=== PATIENT | male | born 1965 | race Caucasian/White ===

== ENCOUNTER 2018-07-02 22:01 | Inpatient (IN) ==
[2018-07-02] MEDS ORDERED: methylPREDNISolone 125 MG/2 ML VIAL IVP ONE (22:05)
[2018-07-02] MEDS ORDERED: Ipratropium/Albuterol Neb 3 ML IH ONE (22:05)
--- NOTE | 2018-07-02 22:08 | Emergency Department Note ---
Disposition Clinical Impression: COPD exacerbation Respiratory failure Qualifiers: Chronicity: acute on chronic Respiratory failure complication: unspecified whether with hypoxia or hypercapnia Qualified Code(s): J96.20 - Acute and chronic respiratory failure, unspecified whether with hypoxia or hypercapnia Community acquired pneumonia Qualifiers: Laterality: right Lung location: middle lobe of lung Qualified Code(s): J18.1 - Lobar pneumonia, unspecified organism Disposition: Admitted As Inpatient Condition: Fair Time of Disposition: 23:09 SOB HPI - General Stated Complaint: IRAM Time Seen by Provider: 07/02/18 22:05 Source: patient Mode of arrival: ambulatory Limitations: no limitations Nursing Notes Reviewed: Yes Vital Signs Reviewed: Yes - History of Present Illness Patient presenting to the ED via EMS with the chief complaint of shortness of breath. Patient has a history of oxygen dependent COPD, 2 L at all times. Reports that over the last 2 days he has been progressively more short of breath. Does state that he has had a productive clear to white sputum cough. Unknown fever. EMS reports patient was satting in the low 90s. Upon arrival. Gave him one breathing treatment and he came up into the 90s, but was still having significant respiratory distress. This reports he has been on BiPAP cyn ral times for his COPD. Denies any history of DVT or PE. Denies any chest pain, but does have some chest tightness. No abdominal pain. No pain or swelling in his legs - Related Data Home Medications Medication Instructions Recorded Confirmed Albuterol Sulfate [Albuterol 2 puff IH Q4H PRN #0 10/28/14 09/03/17 Inhaler] Ipratropium/Albuterol Sulfate 4 gm IH QID 05/24/15 09/03/17 [Combivent Respimat Inhal [place]] Previous Rx's Medication Instructions Recorded GuaiFENesin Liq [Robitussin Liq] 200 mg PO Q6HR PRN 30 Days udc 05/30/15 Albuterol Sulfate [Ventolin Hfa] 18 gm IH Q4HR PRN #14 [email or web address] 09/05/17 Azithromycin [Zithromax] 500 mg PO DAILY #2 tablet 09/05/17 predniSONE [PredniSONE] See Taper PO DAILY #30 tablet 09/05/17 Metoprolol [Lopressor] 50 mg PO BID #120 tablet 09/06/17 Mometasone/Formoterol [Dulera 200 13 gm IH BID #14 [email or web address] 09/06/17 Mcg/5 Mcg Inhaler] amLODIPine [Norvasc] 10 mg PO DAILY #60 tablet 09/06/17 Allergies Allergy/AdvReac Type Severity Reaction Status Date / Time No Known Allergies Allergy Verified 07/02/18 22:08 Review of Systems: As reviewed in the HPI. All other systems reviewed are negative or normal. Past Medical History - Past Medical History Attestation: Yes The following information was validated with the patient. Source: patient Medical history: Reports: COPD, hypertension Surgical history: Reports: other Psychiatric history: Reports: no psych history - Social History Smoking Status: Current every day smoker Smokeless Tobacco Status: No Alcohol use: Reports: rarely Drug use: Reports: none Physical Exam CONSTITUTIONAL: [ill appearing, alert and in acute distress] EYES: [EOMI, clear conjunctiva, PERRLA] HENT: [Normocephalic, atraumatic, moist mucus membranes, normal oropharynx] NECK: [normal inspection, full ROM, trachea midline, no obvious swelling] PULMONARY: [Patient is not moving any air, significant respiratory distress, inessa y prolonged expiratory phase, Significant accessory muscle use CARDIOVASCULAR: [regular rate, regular rhythm, normal heart sounds, no murmurs, distal extremities are warm and well perfused] GASTROINSTESTINAL: [soft, non-tender, non-rigid, non-distended, no guarding, no rebound, normal bowel sounds] GENITOURINARY/RECTAL: [deferred] NEUROLOGIC: [Alert, oriented x3, normal speech but limited 2/2 resp distress, moves all extremities] EXTREMITIES: [Normal inspection, full ROM, no tenderness, no pedal edema, normal capillary refill] MUSCULOSKELETAL: [no gross deformities, atraumatic] SKIN: [No cyanosis, no diaphoresis, normal color, warm, no rash] PSYCHIATRIC: [normal mood and affect] Course Course Narrative: Patient work of breathing significantly decreased on BiPAP. Chest x-ray shows a right middle lobe pneumonia, which is consistent with his clinical exam and history. Given a dose of Rocephin and azithromycin. Patient did need a low- dose benzodiazepine to tolerate BiPAP. Patient will also get a liter of fluids which does seem to be bringing his heart rate down. Patient admitted to the hospitalist service. Vital Signs Temperature 100 F H 05/15/19 22:10 Pulse Rate 151 07/02/18 22:10 Respiratory Rate 29 07/02/18 22:10 Blood Pressure 165/138 07/02/18 22:10 O2 Sat by Pulse Oximetry 100 07/02/18 22:10 Temperature 100 F H 07/02/18 22:10 Pulse Rate 141 07/02/18 23:00 Respiratory Rate 22 07/02/18 23:00 Blood Pressure 121/96 07/02/18 23:00 O2 Sat by Pulse Oximetry 97 07/02/18 23:00 Oxygen Delivery Oxygen Delivery Bipap Shortness of Breath/Dyspnea - Lab Data Result diagrams: 07/02/18 22:29 07/02/18 22:29 Lab Results 07/02/18 07/02/18 07/02/18 Range/Units 22:29 22:29 22:29 WBC 14.3 H (4.3-11.1) K/mcL RBC 4.42 (4.19-5.50) M/mcL Hgb 11.9 L (12.9-16.9) g/dL Hct 37.6 (37.5-50.1) % MCV 85.1 (83.0-100.0) fL MCH 26.9 L (28.0-33.3) pg MCHC 31.6 (31.6-35.5) g/dL RDW 13.2 (11.5-14.5) % Plt Count 399 (140-400) K/mcL MPV 9.3 L (9.4-12.4) fL Immature Gran % 0.3 (0-4) % Seg Neutrophils % 80.0 % Lymphocytes % 6.0 % Monocytes % 13.1 % Eosinophils % 0.2 % Basophils % 0.4 % Neutrophils # 11.4 H (1.6-8.9) K/mcL Lymphocytes # 0.9 (0.6-4.6) K/mcL Monocytes # 1.9 H (0.0-1.3) K/mcL Eosinophils # 0.0 (0.0-0.6) K/mcL Basophils # 0.1 (0.0-0.2) K/mcL Immature Plt Fraction 3.2 (1.1-6.1) % Sodium 135 L (136-145) mEq/L Potassium 4.1 (3.5-5.1) mEq/L Chloride 91 L (98-107) mEq/L Carbon Dioxide 33 H (23-29) mEq/L BUN 16 (6-20) mg/dL Creatinine 0.72 (0.70-1.30) mg/dL Est GFR ( Amer) > 60 (> 60) Est GFR (Non-Af Amer) > 60 (> 60) BUN/Creatinine Ratio 22 (6-26) Glucose 158 H (70-105) mg/dL Calculated Osmolality 284 (280-300) Lactic Acid 1.7 (0.5-2.2) mmol/L Calcium 9.5 (8.6-10.3) mg/dL Troponin I 0.03 (< 0.04) ng/mL
--- NOTE | 2018-07-02 22:10 | Emergency Department Note ---
Disposition Clinical Impression: COPD exacerbation, Respiratory failure Disposition: Admitted As Inpatient General Adult HPI - General Stated complaint: IRAM Time Seen by Provider: 07/02/18 22:05 Source: patient, EMS Mode of arrival: EMS Limitations: physical limitation Nursing Notes Reviewed: Yes Vital Signs Reviewed: Yes - History of Present Illness HPI Narrative: ED attending attestation note: I examined this patient and my medical decision-making was reviewed with the emergency medicine resident Sal Roe. I agree with the documented findings, disposition and treatment plan as described except to the extent set forth below. Briefly: This 2-year-old male history of advanced COPD on home O2 by EMS for shortness breath cough and white sputum. Patient's sats were in the high 80s low 90s. Improved with oxygen administration. Scattered bilateral wheezes with intercostal retractions he is in moderate respiratory distress. Patient getting triple DuoNeb's IV steroids front desk monitor BiPAP chest x-ray EKG and screening labs with admission anticipated. Providing 45 minutes critical care service for this patient. Disposition pending - Related Data Home Medications Medication Instructions Recorded Confirmed Albuterol Sulfate [Albuterol 2 puff IH Q4H PRN #0 10/28/14 09/03/17 Inhaler] Ipratropium/Albuterol Sulfate 4 gm IH QID 05/24/15 09/03/17 [Combivent Respimat Inhal [place]] Previous Rx's Medication Instructions Recorded GuaiFENesin Liq [Robitussin Liq] 200 mg PO Q6HR PRN 30 Days udc 05/30/15 Albuterol Sulfate [Ventolin Hfa] 18 gm IH Q4HR PRN #14 [email or web address] 09/05/17 Azithromycin [Zithromax] 500 mg PO DAILY #2 tablet 09/05/17 predniSONE [PredniSONE] See Taper PO DAILY #30 tablet 09/05/17 Metoprolol [Lopressor] 50 mg PO BID #120 tablet 09/06/17 Mometasone/Formoterol [Dulera 200 13 gm IH BID #14 [email or web address] 09/06/17 Mcg/5 Mcg Inhaler] amLODIPine [Norvasc] 10 mg PO DAILY #60 tablet 09/06/17 Allergies Allergy/AdvReac Type Severity Reaction Status Date / Time No Known Allergies Allergy Verified 09/03/17 13:07 Past Medical History - Past Medical History Medical history: Reports: COPD, hypertension Surgical history: Reports: other Psychiatric history: Reports: no psych history - Social History Smoking Status: Current every day smoker Smokeless Tobacco Status: No Alcohol use: Reports: rarely Drug use: Reports: none
[2018-07-02] MEDS ORDERED: *HR* Midazolam HCl 2 MG/2 ML VIAL IVP ONE (22:21)
[2018-07-02] MEDS ORDERED: Acetaminophen IV 1,000 MG/100 ML INFUS..BTL IVPB ONE (22:33)
[2018-07-02] MEDS ORDERED: *HR* FentaNYL (PF) 100 MCG/2 ML VIAL IVP ONE (22:47)
[2018-07-02 22:48] LABS: Basophils # 0.1 K/mcL (0.0-0.2); Basophils % 0.4 %; Eosinophils % 0.2 %; Hematocrit 37.6 % (37.5-50.1); Hemoglobin 11.9 g/dL (12.9-16.9); Immature Granulocytes % 0.3 % (0-4); Immature Platelets 3.2 % (1.1-6.1); Lymphocytes # 0.9 K/mcL (0.6-4.6); Mean Corpuscular HGB Conc 31.6 g/dL (31.6-35.5); Mean Corpuscular Hemoglobin 26.9 pg (28.0-33.3); Mean Corpuscular Volume 85.1 fL (83.0-100.0); Mean Platelet Volume 9.3 fL (9.4-12.4); Monocytes # 1.9 K/mcL (0.0-1.3); Monocytes % 13.1 %; Neutrophils # 11.4 K/mcL (1.6-8.9); Platelet Count 399 K/mcL (140-400); Red Blood Count 4.42 M/mcL (4.19-5.50); Red Cell Distribution Width 13.2 % (11.5-14.5)
[2018-07-02] MEDS ORDERED: Azithromycin 500 MG in D5% in Water 250 ML IVPB ONE (23:01)
[2018-07-02] MEDS ORDERED: cefTRIAXone 1,000 MG in Water for inj. (sterile) 20 ML 10 ML IVPB ONE (23:01)
[2018-07-02 23:06] LABS: BUN/Creatinine Ratio 22 (6-26); Blood Urea Nitrogen 16 mg/dL (6-20); Calcium 9.5 mg/dL (8.6-10.3); Carbon Dioxide 33 mEq/L (23-29); Chloride 91 mEq/L (98-107); Glucose 158 mg/dL (70-105); Osmolality,Calculated 284 (280-300); Potassium 4.1 mEq/L (3.5-5.1); Sodium 135 mEq/L (136-145); Troponin I 0.03 ng/mL (< 0.04); eGFR For Non-African Americans > 60 (> 60)
[2018-07-02] MEDS ORDERED: 0.9 % Sodium Chloride 1,000 ML IVC ONE (23:06)
[2018-07-02] MEDS ORDERED: 0.9 % Sodium Chloride 1,000 ML IVC SCH (23:15)
[2018-07-03] MEDS ORDERED: Naloxone 0.4 MG/ML INJ IVP PRN (03:24)
[2018-07-03] MEDS ORDERED: Ondansetron ODT 4 MG TAB.RAPDIS SL PRN (03:24)
--- NOTE | 2018-07-03 03:45 | Internal Med History&Physical ---
<Ya Flores - Last Filed: 07/03/18 05:39> Date of Encounter: 07/03/18 Time of Encounter: 03:00 Internal Medicine - H&P: HPI Chief complaint: shortness of breath Admitted From: Home History of present illness: Mr. Perrin is a 52 year old male with past medical history of COPD and hypertension who presented to the ED complaining of worsening shortness of breath. He reports the shortness of breath onset 3 days ago and progressively has worsened. Shortness of breath is present at rest and worsens with exertion. Is associated with productive cough. He is usually on 2 L of nasal cannula at all times at home and reports even with that his oxygen saturation was 90%. He denies any recent sick exposures. He is also complaining of diffuse tightness around his bilateral chest which worsens with cough and is reproducible upon palpation. He denies any abdominal pain, lower extremity edema, orthopnea, PND, nausea or emesis. In the ED he was noted to have oxygen saturation in the high 80s to low 90s with diffuse wheezing. Chest x-ray was ordered which showed focal opacity in the right midlung and advanced emphysematous changes. Past Med Surg Social Fam HX - Past Medical History Medical history: COPD, hypertension Psychiatric history: no psych history - Past Surgical History Surgical History: other Additional surgical history: Left knee replacement, Posterior trunk lipoma and right anterior thigh mass removal and biopsy (Per Dr Keene October 2014) - Social History Smoking Status: Former smoker Smokeless Tobacco Status: No Alcohol use: none Drug use: none - Family History Mother Living Status: Hx Family Cancer: Yes (Breast cancer.) Internal Medicine - H&P: Meds Albuterol Sulfate [Albuterol Inhaler] 2 puff IH Q4H PRN #0 10/28/14 [History] Ipratropium/Albuterol Sulfate [Combivent Respimat Inhal [place]] 4 gm IH QID 05/24/15 [History] Albuterol Sulfate [Ventolin Hfa] 18 gm IH Q4HR PRN #14 [email or web address] 09/05/17 [Rx] Metoprolol [Lopressor] 50 mg PO BID #120 tablet 09/06/17 [Rx] Mometasone/Formoterol [Dulera 200 Mcg/5 Mcg Inhaler] 13 gm IH BID #14 [email or web address] 09/06/17 [Rx] amLODIPine [Norvasc] 10 mg PO DAILY #60 tablet 09/06/17 [Rx] Allergy/AdvReac Type Severity Reaction Status Date / Time No Known Allergies Allergy Verified 07/02/18 22:08 All Systems PM: A 10-system review of systems was performed and is negative for pertinent findings except as documented above in the HPI. - Constitutional Constitutional: no chills, no fever(s), no weakness - EENT Eyes: no blurry vision, no change in vision, no loss of peripheral vision, no loss of vision Nose, mouth and throat: no dysphagia, no nasal congestion, no odynophagia - Cardiovascular Cardiovascular ROS IM: dyspnea, dyspnea on exertion, no chest pain, no diaphoresis, no orthopnea, no palpitations, no paroxysmal nocturnal dyspnea - Respiratory Respiratory: cough, dyspnea, dyspnea on exertion, wheezing, pain with cough - Gastrointestinal Gastrointestinal: no abdominal pain, no constipation, no diarrhea, no nausea, no vomiting - Genitourinary Genitourinary ROS male: no dysuria, no flank pain, no urinary frequency, no urinary incontinence - Integumentary Integumentary IM: no erythema, no pruritus, no rash - Neurological Neurological ROS: no focal weakness, no tremor(s), no vertigo, no weakness - Psychiatric Psychiatric: anxiety, no change in appetite, no depression - Constitutional Vitals: Temp Pulse Resp BP Pulse Ox 98.1 F 110 16 120/93 94 07/03/18 01:40 07/03/18 01:40 07/03/18 01:40 07/03/18 01:40 07/03/18 01:40 Exam: Gen: Vitals noted. No acute distress. Appears mildly uncomfortable. Eyes: anicteric sclerae, moist conjunctivae; no lid-lag; Pupils equal and reactive to light HENT: Atraumatic; oropharynx clear with moist mucous membranes and no mucosal ulcerations; normal hard and soft palate Neck: Trachea midline; supple, no thyromegaly or lymphadenopathy Cardiac: regular rhythm with tachycardia, no murmur, +S1/S2. No JVD noted. Pulmonary: Diffuse wheezing at all lung lobes, no rales or rhonchi, equal chest expansion Abdomen: soft, nontender, no guarding. No masses or hepatosplenomegaly MSK: ROM intact, no joint swelling noted, tenderness around anterior costophrenic angles Extremities: no edema, nontender calf Skin: Normal temperature, turgor; no rash, ulcers or subcutaneous nodules Neuro: moves all extremities, no focal deficits. Psych: Appropriate mood and behavior. A&Ox3 Internal Med - H&P Results - Labs CBC & Chem 7: 07/02/18 22:29 07/02/18 22:29 Labs: Short CBC 07/02/18 Range/Units 22:29 WBC 14.3 H (4.3-11.1) K/mcL Hgb 11.9 L (12.9-16.9) g/dL Hct 37.6 (37.5-50.1) % Plt Count 399 (140-400) K/mcL Neutrophils # 11.4 H (1.6-8.9) K/mcL BMP 07/02/18 22:29 Sodium 135 L Potassium 4.1 Chloride 91 L Carbon Dioxide 33 H BUN 16 Creatinine 0.72 Glucose 158 H Calcium 9.5 Cardiac Enzymes 07/02/18 Range/Units 22:29 Troponin I 0.03 (< 0.04) ng/mL - Impressions ITS Impressions Chest X-Ray 07/02/18 22:05 IMPRESSION: Possible focal opacity in the right mid lung, which may be infectious in etiology. However, close radiographic follow-up is recommended until resolution, versus further evaluation with chest CT. Advanced emphysematous changes. D/ / Boby Roach MD / Boby Roach MD Interpreting Provider: Boby Roach MD - Assessment and Plan (1) Pneumonia Current Visit: No Status: Acute Assessment and plan: Presented to the ED complaining of worsening shortness of breath with productive cough. Chest x-ray shows focal opacification in the right middle lung Wbc on presentation was 14.3 No recent healthcare exposure -Continue treating for community-acquired pneumonia with IV Rocephin and ceftriaxone -Continue scheduled DuoNeb -Cultures and sputum cultures pending -Repeat CBC and BMP pending Qualifiers: Pneumonia type: due to unspecified organism Laterality: right Lung location: upper lobe of lung Qualified Code(s): J18.1 - Lobar pneumonia, unspecified organism (2) Acute respiratory failure with hypoxia Current Visit: Yes Status: Acute Assessment and plan: Presented to the ED with worsening shortness of breath even on 2 L nasal cannula at home Likely secondary to underlying pneumonia and COPD exacerbation Oxygen saturation in the ED was noted to be in the high 80s -ABG pending -Continue supplemental oxygen -Continue BiPAP as needed -Continue to treat pneumonia (3) Acute exacerbation of chronic obstructive airways disease Current Visit: No Status: Acute Assessment and plan: History of COPD presented to the ED complaining of worsening shortness of breath occurring more than daily 2 L of supplemental oxygen. Also complaining of productive cough. At presentation to the ED oxygen saturation was in the high 80s, does have diffuse wheezing in all lung lobes. -Received 125 mg of Solu-Medrol in the ED -Continue 60 mg IV Solu-Medrol every 8 hour -Continue scheduled DuoNeb -Continue Mucinex -Continue BiPAP -Sputum cultures pending (4) Chest pain Current Visit: Yes Status: Acute Assessment and plan: Complained of chest pain that worsens with inspiration and cough Could be secondary to pneumonia versus costochondritis versus cardiac cause Troponin at admission was noted to be 0.03 BNP was normal at 42 Continue cardiac monitoring Continue acetaminophen Qualifiers: Chest pain type: chest pain on breathing Qualified Code(s): R07.1 - Chest p ain on breathing; R07.81 - Pleurodynia (5) Hyperglycemia Current Visit: Yes Status: Acute Assessment and plan: Glucose noted to be 158 Upon comparison of previous admissions glucose has been high in the past No A1c found on file A1c pending May need sliding scale insulin depending on A1c as he is currently on Solu- Medrol (6) HTN (hypertension) Current Visit: No Status: Chronic Assessment and plan: History of hypertension since presentation blood pressure has been stable. Blood pressure increases restart home amlodipine Due to tachycardia did restart home metoprolol Qualifiers: Hypertension type: essential hypertension Qualified Code(s): I10 - Essential (primary) hypertension (7) DVT prophylaxis Current Visit: No Status: Acute Assessment and plan: Subcutaneous heparin - Time Spent With Patient Total time spent is greater than 50% in coordination of care (as documented) at patient's floor/unit and/or counseling patient: <Hilborn,Chace D - Last Filed: 07/03/18 06:30> Date of Encounter: 07/03/18 Internal Medicine - H&P: HPI History of present illness: Mr. Perrin is a 52 year old male All Systems PM: A 10-system review of systems was performed and is negative for pertinent findings except as documented above in the HPI. - Constitutional Vitals: Temp Pulse Resp BP Pulse Ox 98.1 F 110 20 120/93 94 07/03/18 01:40 07/03/18 01:40 07/03/18 03:55 07/03/18 03:55 07/03/18 03:55 Internal Med - H&P Results - Labs CBC & Chem 7: 07/02/18 22:29 07/02/18 22:29 Labs: Short CBC 07/02/18 Range/Units 22:29 WBC 14.3 H (4.3-11.1) K/mcL Hgb 11.9 L (12.9-16.9) g/dL Hct 37.6 (37.5-50.1) % Plt Count 399 (140-400) K/mcL Neutrophils # 11.4 H (1.6-8.9) K/mcL BMP 07/02/18 22:29 Sodium 135 L Potassium 4.1 Chloride 91 L Carbon Dioxide 33 H BUN 16 Creatinine 0.72 Glucose 158 H Calcium 9.5 Cardiac Enzymes 07/02/18 Range/Units 22:29 Troponin I 0.03 (< 0.04) ng/mL - ABG Interpretation ABG results: 07/03/18 06:08 ABG pH 7.35 ABG pCO2 59 H ABG pO2 70 L ABG HCO3 33 H ABG Total CO2 34 H ABG O2 Saturation 92 L ABG Base Excess 5 H - Impressions ITS Impressions Chest X-Ray 07/02/18 22:05 IMPRESSION: Possible focal opacity in the right mid lung, which may be infectious in etiology. However, close radiographic follow-up is recommended until resolution, versus further evaluation with chest CT. Advanced emphysematous changes. D/ / Boby Roach MD / Boby Roach MD Interpreting Provider: Boby Roach MD - Time Spent With Patient Total time spent is greater than 50% in coordination of care (as documented) at patient's floor/unit and/or counseling patient: - Attending Attestation I saw and evaluated the patient. I reviewed the residents note, performed my own physical examination and agree with findings and plan as documented in the residents note. Patient seen and examined on 07/03/18. Patient presented with COPD exacerbation. Also found to have possible pneumonia in right mid lung. Started antibiotics, ceftriaxone and azithromycin, ordered ABG and blood cultures. will continue breathing treatments and IV steroids as well. A1c ordered because of history of hyperglycemia in setting of steroids. Ruling out possible underlying diabetes. Continue to monitor oxygen saturation, continue BiPAP.
[2018-07-03] MEDS: Ipratropium/Albuterol Neb 3 ML IH SCH ×4 (03:52→22:11)
[2018-07-03] MEDS: *HR* LORazepam 2 MG/ML VIAL IVP PRN ×2 (03:59→20:36)
[2018-07-03 06:11] LABS: ABG Base Excess 5 mEq/L (-2 to 3); ABG HCO3 33 mEq/L (21-27); ABG Oxygen Saturation 92 % (95-98); ABG PCO2 59 mmHg (35-45); ABG PH 7.35 pH Units (7.32-7.45); ABG PO2 70 mmHg (85-104); ABG TCO2 34 mEq/L (20-26)
[2018-07-03] MEDS: methylPREDNISolone 125 MG/2 ML VIAL IVP SCH ×3 (06:13→20:35)
[2018-07-03] MEDS: *HR* Heparin 5,000 UNIT/ML VIAL SQ SCH ×2 (06:14→17:20)
[2018-07-03 08:01] LABS: Basophils % 0.1 %; Hematocrit 33.9 % (37.5-50.1); Hemoglobin 10.4 g/dL (12.9-16.9); Immature Granulocytes % 0.3 % (0-4); Lymphocytes # 0.3 K/mcL (0.6-4.6); Lymphocytes % 2.8 %; Mean Corpuscular HGB Conc 30.7 g/dL (31.6-35.5); Mean Corpuscular Hemoglobin 26.3 pg (28.0-33.3); Mean Corpuscular Volume 85.6 fL (83.0-100.0); Mean Platelet Volume 9.6 fL (9.4-12.4); Monocytes # 0.5 K/mcL (0.0-1.3); Monocytes % 4.5 %; Neutrophils # 10.2 K/mcL (1.6-8.9); Platelet Count 335 K/mcL (140-400); Red Blood Count 3.96 M/mcL (4.19-5.50); Red Cell Distribution Width 13.2 % (11.5-14.5); Segmented Neutrophils % 92.3 %
[2018-07-03 08:40] LABS: BUN/Creatinine Ratio 26 (6-26); Blood Urea Nitrogen 16 mg/dL (6-20); Calcium 9.1 mg/dL (8.6-10.3); Glucose 158 mg/dL (70-105); eGFR For Non-African Americans > 60 (> 60)
[2018-07-03 08:49] LABS: Carbon Dioxide 32 mEq/L (23-29); Chloride 94 mEq/L (98-107); Osmolality,Calculated 286 (280-300); Potassium 4.5 mEq/L (3.5-5.1); Sodium 136 mEq/L (136-145)
[2018-07-03 09:13] LABS: Estimated Average Glucose 117 mg/dl; Hemoglobin A1C 5.7 %
[2018-07-03] MEDS: *HR* OxyCODONE Immed Rel 5 MG TABLET PO PRN ×3 (09:21→23:35)
[2018-07-03] MEDS: GuaiFENesin/Dextromethorphan TABLET PO SCH ×2 (09:21→20:35)
--- NOTE | 2018-07-03 11:12 | Event Note ---
Date of Encounter: 07/03/18 Time of Encounter: 11:11 Patient seen and examined at bedside. Patient states that he feels terrible swelling. Reports continued shortness of breath and productive cough with thick greenish sputum. He reports pain all over. Denies any fevers or chills On exam his lungs have diffuse rhonchi with bilateral wheezes Pneumonia: Continue treatment for community acquired pneumonia with Rocephin and Zithromax, will check strep and legionella urinary antigen respiratory infection panel COPD exacerbation: Continue scheduled bronchodilators, IV steroids, antibiotics as above.
[2018-07-03 12:19] LABS: Adenovirus Not Detected (Not Detect); Bordetella Pertussis Not Detected (Not Detect); Chlamydophila pneumoniae Not Detected (Not Detect); Coronavirus 229E Not Detected (Not Detect); Coronavirus HKU1 Not Detected (Not Detect); Coronavirus NL63 Not Detected (Not Detect); Coronavirus OC43 Not Detected (Not Detect); Human Metapneumovirus Not Detected (Not Detect); Human Rhinovirus/Enterovirus Not Detected (Not Detect); Influenza A Subtype 2009 H1 Not Detected (Not Detect); Influenza A Untypeable Not Detected (Not Detect); Influenza B Not Detected (Not Detect); Mycoplasma pneumoniae Not Detected (Not Detect); Parainfluenza Virus 1 Not Detected (Not Detect); Parainfluenza Virus 2 Not Detected (Not Detect); Parainfluenza Virus 3 Not Detected (Not Detect); Parainfluenza Virus 4 Not Detected (Not Detect); Respiratory Syncytial Virus Not Detected (Not Detect)
--- NOTE | 2018-07-03 18:31 | Electrocardiograph Report ---
[address] [place], [place] [address] Test Date: 2018-07-02 Pat Name: Prashanth Perrin Department: EXAM20 Room: 2N10 Gender: M Vp Research: : 1965 Requested By: Dimitris Jimenez Order Number: [id number] Reading MD: Esperanza Terrazas Measurements Intervals [place] Rate: 148 P: 71 [place]: 125 QRS: 81 QRSD: 79 T: 87 QT: 260 QTc: 408 Interpretive Statements Sinus tachycardia Probable left ventricular hypertrophy Electronically Signed On 07-03-2018 18:29:25 EDT by Esperanza Terrazas
[2018-07-03] MEDS: cefTRIAXone 1,000 MG in Water for inj. (sterile) 20 ML 10 ML IVP SCH (23:35)
[2018-07-03] MEDS: Azithromycin 500 MG in D5% in Water 250 ML IVPB SCH (23:36)
[2018-07-04] MEDS: Ipratropium/Albuterol Neb 3 ML IH SCH ×4 (03:52→22:31)
[2018-07-04] MEDS: methylPREDNISolone 125 MG/2 ML VIAL IVP SCH (04:57)
[2018-07-04] MEDS: *HR* Heparin 5,000 UNIT/ML VIAL SQ SCH ×2 (04:57→17:14)
[2018-07-04] MEDS: *HR* OxyCODONE Immed Rel 5 MG TABLET PO PRN ×4 (05:32→23:11)
[2018-07-04] MEDS: GuaiFENesin/Dextromethorphan TABLET PO SCH ×2 (08:00→20:20)
[2018-07-04 11:05] LABS: Basophils % 0.2 %; Hematocrit 33.5 % (37.5-50.1); Hemoglobin 10.4 g/dL (12.9-16.9); Immature Granulocytes % 0.6 % (0-4); Lymphocytes # 0.8 K/mcL (0.6-4.6); Lymphocytes % 4.5 %; Mean Corpuscular Hemoglobin 26.8 pg (28.0-33.3); Mean Corpuscular Volume 86.3 fL (83.0-100.0); Mean Platelet Volume 9.7 fL (9.4-12.4); Monocytes # 0.6 K/mcL (0.0-1.3); Monocytes % 3.7 %; Neutrophils # 15.2 K/mcL (1.6-8.9); Platelet Count 419 K/mcL (140-400); Red Blood Count 3.88 M/mcL (4.19-5.50); Red Cell Distribution Width 13.2 % (11.5-14.5)
[2018-07-04 11:11] LABS: BUN/Creatinine Ratio 32 (6-26); Blood Urea Nitrogen 20 mg/dL (6-20); Calcium 9.1 mg/dL (8.6-10.3); Carbon Dioxide 35 mEq/L (23-29); Chloride 91 mEq/L (98-107); Glucose 190 mg/dL (70-105); Osmolality,Calculated 286 (280-300); Potassium 4.5 mEq/L (3.5-5.1); Sodium 134 mEq/L (136-145); eGFR For Non-African Americans > 60 (> 60)
--- NOTE | 2018-07-04 12:26 | Internal Med Progress Note ---
Hospitalist Progress Note - Encounter Date of Encounter: 07/04/18 Time of Encounter: 12:23 - Subjective Interval History: Patient seen and examined at bedside. Patient states he feels better today. He feels like his breathing is improved. He states he still has an occasional productive cough with leukocytosis is improving. Denies chest pain, fever, chills. - Exam Vitals: Temp Pulse Resp BP Pulse Ox 97.9 F 79 23 137/97 99 07/04/18 12:07 07/04/18 12:07 07/04/18 12:07 07/04/18 12:07 07/04/18 12:07 Exam: Gen.: Oriented 3, no acute distress Lungs: Rare scattered wheezes, no rales or rhonchi appreciated, no tachypnea or respiratory distress Heart: Regular rate and rhythm, no murmurs, rubs or gallops Abdomen: Soft, nontender, nondistended. Normoactive bowel sounds. - Assessment and Plan (1) Acute and chronic respiratory failure Current Visit: Yes Status: Acute Assessment and Plan: Secondary to COPD exacerbation in the setting of pneumonia. Oxygen status appears to be improved. Patient is satting high 90s on 3.5 L, we will attempt to continue to wean down to home O2 dose of 2 L. Continue oxygen supplementation to maintain oxygen saturation greater than 88%. (2) Acute exacerbation of chronic obstructive airways disease Current Visit: No Status: Acute Assessment and Plan: Secondary to community-acquired pneumonia. Patient seems to be improving. We will cut back IV Solu-Medrol to 40 mg every 8, likely transition to by mouth tomorrow. Continue scheduled bronchodilators, antibiotics. (3) Pneumonia Current Visit: No Status: Acute Assessment and Plan: Patient has evidence of community acquired pneumonia on chest x-ray in symptomatically with shortness of breath and increased cough and sputum production. Continue azithromycin and ceftriaxone. (4) HTN (hypertension) Current Visit: No Status: Chronic Assessment and Plan: Blood pressure under adequate control. Continue home medications. (5) Protein calorie malnutrition Current Visit: Yes Status: Acute (6) DVT prophylaxis Current Visit: No Status: Acute Assessment and Plan: Heparin 5000 units subcutaneous twice a day - Time Spent with Patient Total time spent is greater than 50% in coordination of care (as documented) at patient's floor/unit and/or counseling patient: Internal Medicine: Result - Labs CBC & Chem 7: 07/04/18 09:59 07/04/18 09:59 Labs: Short CBC 07/04/18 Range/Units 09:59 WBC 16.7 H D (4.3-11.1) K/mcL Hgb 10.4 L (12.9-16.9) g/dL Hct 33.5 L (37.5-50.1) % Plt Count 419 H (140-400) K/mcL Neutrophils # 15.2 H (1.6-8.9) K/mcL BMP 07/04/18 09:59 Sodium 134 L Potassium 4.5 Chloride 91 L Carbon Dioxide 35 H BUN 20 Creatinine 0.62 L Glucose 190 H Calcium 9.1 - ABG Interpretation ABG results: ABG ABG pH 7.35 pH Units (7.32-7.45) 07/03/18 06:08 ABG pCO2 59 mmHg (35-45) H 07/03/18 06:08 ABG pO2 70 mmHg (85-104) L 07/03/18 06:08 ABG O2 Saturation 92 % (95-98) L 07/03/18 06:08 Consult Discharge Plan - Plan Referrals: Tracie Humphrey, APICULTURIST [Advanced Practice Nurse] - 07/11/18 9:15 am __ (1) Acute and chronic respiratory failure Qualifiers: Respiratory failure complication: hypoxia Qualified Code(s): J96.21 - Acute and chronic respiratory failure with hypoxia (3) Pneumonia Qualifiers: Pneumonia type: due to unspecified organism Laterality: right Lung location: upper lobe of lung Qualified Code(s): J18.1 - Lobar pneumonia, unspecified o rganism (4) HTN (hypertension) Qualifiers: Hypertension type: essential hypertension Qualified Code(s): I10 - Essential (primary) hypertension (5) Protein calorie malnutrition Qualifiers: Protein-calorie malnutrition severity: severe Qualified Code(s): E43 - Unspecified severe protein-calorie malnutrition
[2018-07-04] MEDS: *HR* LORazepam 2 MG/ML VIAL IVP PRN (15:34)
[2018-07-04] MEDS: MethylPREDNISolone 40 MG/ML VIAL IVP SCH (17:13)
[2018-07-04] MEDS: Acetaminophen 325 MG TABLET PO PRN (20:21)
[2018-07-04] MEDS: cefTRIAXone 1,000 MG in Water for inj. (sterile) 20 ML 10 ML IVP SCH (23:06)
[2018-07-04] MEDS: Azithromycin 500 MG in D5% in Water 250 ML IVPB SCH (23:10)
[2018-07-05] MEDS: Ipratropium/Albuterol Neb 3 ML IH SCH ×4 (03:39→22:11)
[2018-07-05] MEDS: Acetaminophen 325 MG TABLET PO PRN ×2 (05:24→20:04)
[2018-07-05] MEDS: MethylPREDNISolone 40 MG/ML VIAL IVP SCH ×2 (05:26→17:01)
[2018-07-05] MEDS: *HR* Heparin 5,000 UNIT/ML VIAL SQ SCH ×2 (05:30→17:01)
--- NOTE | 2018-07-05 07:44 | Internal Med Progress Note ---
Hospitalist Progress Note - Encounter Date of Encounter: 07/05/18 Time of Encounter: 10:38 - Subjective Interval History: feeling more dyspnea yellow phlegm bilateral lower chest pleuritic chest pain - Exam Vitals: Temp Pulse Resp BP Pulse Ox 97.5 F L 72 22 139/97 98 07/05/18 07:04 07/05/18 07:04 07/05/18 07:04 07/05/18 07:04 07/05/18 07:04 Exam: Gen.: Oriented 3, tachypnea, sitting up to breathe Lungs: Prolonged expiration > 3 x inspiration, expiratory wheezes, no rales Heart: Regular rate and rhythm, no murmurs, rubs or gallops Abdomen: Soft, nontender, nondistended. no guaring or rebound awake, alert, no dysarthria or gross motor deficits no ankle edema - Assessment and Plan (1) COPD exacerbation Current Visit: Yes Status: Acute (2) Respiratory failure Current Visit: Yes Status: Acute (3) Pneumonia Current Visit: No Status: Acute (4) Leukocytosis Current Visit: No Status: Acute (5) HTN (hypertension) Current Visit: No Status: Chronic (6) DVT prophylaxis Current Visit: No Status: Acute - Summary of Assessment and Plan Summary of Assessment and Plan: Per H&P: """Mr. Perrin is a 52 year old male with past medical history of COPD and hypertension who presented to the ED complaining of worsening shortness of breath. He reports the shortness of breath onset 3 days ago and progressively has worsened. Shortness of breath is present at rest and worsens with exertion. Is associated with productive cough. He is usually on 2 L of nasal cannula at all times at home and reports even with that his oxygen saturation was 90%. He denies any recent sick exposures. He is also complaining of diffuse tightness around his bilateral chest which worsens with cough and is reproducible upon palpation. He denies any abdominal pain, lower extremity edema, orthopnea, PND, nausea or emesis. In the ED he was noted to have oxygen saturation in the high 80s to low 90s with diffuse wheezing. Chest x-ray was ordered which showed focal opacity in the right midlung and advanced emphysematous changes. """ (1) Acute and chronic respiratory failure (2) Acute exacerbation of chronic obstructive airways disease (3) Pneumonia - wheezing this morning, --> continuous nebs - cont supplemental O2 by NC, will attempt to continue to wean down to home O2 dose of 2 L prior to discharge - cont BiPAP hs (home BiPAP) - Cont IV Solu-Medrol, transition when improved further - Continue scheduled bronchodilators, azithromycin, ceftriaxone - WBC 11k --> 16k likely due to steroids, if clinically worsens, will broaden antibiotics (4) HTN (hypertension) Blood pressure under adequate control - resume amlodipine if BP high - Resume metoprolol when further improved (5) DVT prophylaxis Heparin 5000 units subcutaneous twice a day - Time Spent with Patient Total time spent is greater than 50% in coordination of care (as documented) at patient's floor/unit and/or counseling patient: Internal Medicine: Result - Labs CBC & Chem 7: 07/05/18 08:25 07/05/18 08:25 Labs: Short CBC 07/04/18 Range/Units 09:59 WBC 16.7 H D (4.3-11.1) K/mcL Hgb 10.4 L (12.9-16.9) g/dL Hct 33.5 L (37.5-50.1) % Plt Count 419 H (140-400) K/mcL Neutrophils # 15.2 H (1.6-8.9) K/mcL BMP 07/04/18 09:59 Sodium 134 L Potassium 4.5 Chloride 91 L Carbon Dioxide 35 H BUN 20 Creatinine 0.62 L Glucose 190 H Calcium 9.1 - ABG Interpretation ABG results: ABG ABG pH 7.35 pH Units (7.32-7.45) 07/03/18 06:08 ABG pCO2 59 mmHg (35-45) H 07/03/18 06:08 ABG pO2 70 mmHg (85-104) L 07/03/18 06:08 ABG O2 Saturation 92 % (95-98) L 07/03/18 06:08 Consult Discharge Plan - Plan Referrals: Tracie Humphrey, CERTIFIED NURSES' AIDE [Advanced Practice Nurse] - 07/11/18 9:15 am (2) Respiratory failure Qualifiers: Chronicity: acute on chronic Respiratory failure complication: unspecified whether with hypoxia or hypercapnia Qualified Code(s): J96.20 - Acute and chronic respiratory failure, unspecified whether with hypoxia or hypercapnia (3) Pneumonia Qualifiers: Pneumonia type: due to unspecified organism Laterality: right Lung location: upper lobe of lung Qualified Code(s): J18.1 - Lobar pneumonia, unspecified organism (4) Leukocytosis Qualifiers: Leukocytosis type: unspecified Qualified Code(s): D72.829 - Elevated white blood cell count, unspecified (5) HTN (hypertension) Qualifiers: Hypertension type: essential hypertension Qualified Code(s): I10 - Essential (primary) hypertension
[2018-07-05 08:47] LABS: Basophils % 0.2 %; Hematocrit 34.7 % (37.5-50.1); Hemoglobin 10.6 g/dL (12.9-16.9); Immature Granulocytes % 0.8 % (0-4); Lymphocytes # 0.8 K/mcL (0.6-4.6); Lymphocytes % 4.7 %; Mean Corpuscular HGB Conc 30.5 g/dL (31.6-35.5); Mean Corpuscular Hemoglobin 26.3 pg (28.0-33.3); Mean Corpuscular Volume 86.1 fL (83.0-100.0); Mean Platelet Volume 9.3 fL (9.4-12.4); Monocytes # 0.9 K/mcL (0.0-1.3); Monocytes % 4.9 %; Neutrophils # 15.7 K/mcL (1.6-8.9); Platelet Count 458 K/mcL (140-400); Red Blood Count 4.03 M/mcL (4.19-5.50); Red Cell Distribution Width 13.2 % (11.5-14.5); Segmented Neutrophils % 89.4 %
[2018-07-05] MEDS ORDERED: Albuterol Neb 7.5 MG, Sodium Chloride for inhalation 12 ML IH ONE (08:59)
[2018-07-05 09:15] LABS: BUN/Creatinine Ratio 40 (6-26); Blood Urea Nitrogen 29 mg/dL (6-20); Calcium 9.5 mg/dL (8.6-10.3); Carbon Dioxide 38 mEq/L (23-29); Chloride 92 mEq/L (98-107); Glucose 133 mg/dL (70-105); Magnesium 2.1 mg/dL (1.6-2.6); Osmolality,Calculated 284 (280-300); Sodium 133 mEq/L (136-145); eGFR For Non-African Americans > 60 (> 60)
[2018-07-05] MEDS: *HR* OxyCODONE Immed Rel 5 MG TABLET PO PRN ×3 (09:39→23:03)
[2018-07-05] MEDS: GuaiFENesin/Dextromethorphan TABLET PO SCH ×2 (09:40→20:04)
[2018-07-05] MEDS: *HR* LORazepam 2 MG/ML VIAL IVP PRN (11:59)
[2018-07-05] MEDS: cefTRIAXone 1,000 MG in Water for inj. (sterile) 20 ML 10 ML IVP SCH (23:00)
[2018-07-05] MEDS: Azithromycin 500 MG in D5% in Water 250 ML IVPB SCH (23:03)
[2018-07-06] MEDS: Acetaminophen 325 MG TABLET PO PRN ×3 (03:31→22:52)
[2018-07-06] MEDS: Ipratropium/Albuterol Neb 3 ML IH SCH ×5 (04:21→20:55)
[2018-07-06] MEDS: *HR* OxyCODONE Immed Rel 5 MG TABLET PO PRN ×3 (05:07→20:18)
[2018-07-06] MEDS: *HR* Heparin 5,000 UNIT/ML VIAL SQ SCH ×2 (05:08→18:19)
[2018-07-06] MEDS: MethylPREDNISolone 40 MG/ML VIAL IVP SCH ×2 (05:10→18:19)
[2018-07-06] MEDS: GuaiFENesin/Dextromethorphan TABLET PO SCH ×2 (09:11→20:20)
[2018-07-06 09:24] LABS: Hematocrit 36.6 % (37.5-50.1); Mean Corpuscular HGB Conc 30.1 g/dL (31.6-35.5); Mean Corpuscular Hemoglobin 26.4 pg (28.0-33.3); Mean Corpuscular Volume 87.8 fL (83.0-100.0); Mean Platelet Volume 9.5 fL (9.4-12.4); Platelet Count 490 K/mcL (140-400); Red Blood Count 4.17 M/mcL (4.19-5.50); Red Cell Distribution Width 13.2 % (11.5-14.5)
[2018-07-06 09:43] LABS: BUN/Creatinine Ratio 37 (6-26); Blood Urea Nitrogen 25 mg/dL (6-20); Calcium 8.8 mg/dL (8.6-10.3); Carbon Dioxide 38 mEq/L (23-29); Chloride 90 mEq/L (98-107); Glucose 164 mg/dL (70-105); Osmolality,Calculated 288 (280-300); Potassium 4.9 mEq/L (3.5-5.1); Sodium 135 mEq/L (136-145); eGFR For Non-African Americans > 60 (> 60)
--- NOTE | 2018-07-06 09:54 | Internal Med Progress Note ---
Hospitalist Progress Note - Encounter Date of Encounter: 07/06/18 Time of Encounter: 09:45 - Subjective Interval History: feeling more dyspnea yellow phlegm bilateral lower chest pleuritic chest pain - Exam Vitals: Temp Pulse Resp BP Pulse Ox 99.5 F 86 18 148/116 96 07/06/18 07:31 07/06/18 07:31 07/06/18 07:31 07/06/18 07:31 07/06/18 07:31 Exam: Gen.: Oriented 3, tachypnea Lungs: Prolonged expiration > 3 x inspiration, expiratory wheezes, no rales Heart: Regular rate and rhythm, no murmurs, rubs or gallops Abdomen: Soft, nontender, nondistended. no guarding or rebound awake, alert, no dysarthria or gross motor deficits no ankle edema - Assessment and Plan (1) COPD exacerbation Current Visit: Yes Status: Acute (2) Respiratory failure Current Visit: Yes Status: Acute (3) Pneumonia Current Visit: No Status: Acute (4) Leukocytosis Current Visit: No Status: Acute (5) HTN (hypertension) Current Visit: No Status: Chronic (6) DVT prophylaxis Current Visit: No Status: Acute - Summary of Assessment and Plan Summary of Assessment and Plan: Per H&P: """Mr. Perrin is a 52 year old male with past medical history of COPD and hypertension who presented to the ED complaining of worsening shortness of breath. He reports the shortness of breath onset 3 days ago and progressively has worsened. Shortness of breath is present at rest and worsens with exertion. Is associated with productive cough. He is usually on 2 L of nasal cannula at all times at home and reports even with that his oxygen saturation was 90%. He denies any recent sick exposures. He is also complaining of diffuse tightness around his bilateral chest which worsens with cough and is reproducible upon palpation. He denies any abdominal pain, lower extremity edema, orthopnea, PND, nausea or emesis. In the ED he was noted to have oxygen saturation in the high 80s to low 90s with diffuse wheezing. Chest x-ray was ordered which showed focal opacity in the right midlung and advanced emphysematous changes. """ (1) Acute and chronic respiratory failure (2) Acute exacerbation of chronic obstructive airways disease (3) Pneumonia - still dyspnea and far from baseline - cont supplemental O2 by NC, will attempt to continue to wean down to home O2 dose of 2 L prior to discharge - cont BiPAP hs (home BiPAP) - Cont IV Solu-Medrol, transition when improved further - Continue scheduled bronchodilators, azithromycin, ceftriaxone - WBC 11k --> 16k likely due to steroids, if clinically worsens, will broaden antibiotics (4) HTN (hypertension) - resume amlodipine - Resume metoprolol when further improved (5) DVT prophylaxis Heparin 5000 units subcutaneous twice a day - Time Spent with Patient Total time spent is greater than 50% in coordination of care (as documented) at patient's floor/unit and/or counseling patient: Internal Medicine: Result - Labs CBC & Chem 7: 07/06/18 08:44 07/06/18 08:44 Labs: Short CBC 07/06/18 Range/Units 08:44 WBC 16.9 H (4.3-11.1) K/mcL Hgb 11.0 L (12.9-16.9) g/dL Hct 36.6 L (37.5-50.1) % Plt Count 490 H (140-400) K/mcL BMP 07/06/18 08:44 Sodium 135 L Potassium 4.9 Chloride 90 L Carbon Dioxide 38 H BUN 25 H Creatinine 0.68 L Glucose 164 H Calcium 8.8 - ABG Interpretation ABG results: ABG ABG pH 7.35 pH Units (7.32-7.45) 07/03/18 06:08 ABG pCO2 59 mmHg (35-45) H 07/03/18 06:08 ABG pO2 70 mmHg (85-104) L 07/03/18 06:08 ABG O2 Saturation 92 % (95-98) L 07/03/18 06:08 Consult Discharge Plan - Plan Referrals: Tracie Humphrey, TELESALES TEAM LEADER [Advanced Practice Nurse] - 07/11/18 9:15 am (2) Respiratory failure Qualifiers: Chronicity: acute on chronic Respiratory failure complication: unspecified whether with hypoxia or hypercapnia Qualified Code(s): J96.20 - Acute and chronic respiratory failure, unspecified whether with hypoxia or hypercapnia (3) Pneumonia Qualifiers: Pneumonia type: due to unspecified organism Laterality: right Lung location: upper lobe of lung Qualified Code(s): J18.1 - Lobar pneumonia, unspecified organism (4) Leukocytosis Qualifiers: Leukocytosis type: unspecified Qualified Code(s): D72.829 - Elevated white blood cell count, unspecified (5) HTN (hypertension) Qualifiers: Hypertension type: essential hypertension Qualified Code(s): I10 - Essential (primary) hypertension
[2018-07-06] MEDS ORDERED: Albuterol 2.5 MG/3 ML NEBULIZER IH PRN (10:25)
[2018-07-06] MEDS: amLODIPine 5 MG TABLET PO SCH (11:37)
[2018-07-06] MEDS: *HR* LORazepam 2 MG/ML VIAL IVP PRN (18:19)
[2018-07-06] MEDS: cefTRIAXone 1,000 MG in Water for inj. (sterile) 20 ML 10 ML IVP SCH (22:54)
[2018-07-06] MEDS: Azithromycin 500 MG in D5% in Water 250 ML IVPB SCH (23:07)
[2018-07-07] MEDS: Ipratropium/Albuterol Neb 3 ML IH SCH ×6 (00:43→19:47)
[2018-07-07] MEDS: *HR* OxyCODONE Immed Rel 5 MG TABLET PO PRN ×3 (03:26→22:03)
[2018-07-07] MEDS: MethylPREDNISolone 40 MG/ML VIAL IVP SCH ×2 (05:21→18:24)
[2018-07-07] MEDS: *HR* Heparin 5,000 UNIT/ML VIAL SQ SCH ×2 (05:21→18:24)
[2018-07-07 08:34] LABS: Hematocrit 37.5 % (37.5-50.1); Hemoglobin 11.3 g/dL (12.9-16.9); Mean Corpuscular HGB Conc 30.1 g/dL (31.6-35.5); Mean Corpuscular Hemoglobin 26.3 pg (28.0-33.3); Mean Corpuscular Volume 87.2 fL (83.0-100.0); Mean Platelet Volume 9.4 fL (9.4-12.4); Platelet Count 537 K/mcL (140-400); Red Cell Distribution Width 13.3 % (11.5-14.5)
[2018-07-07] MEDS: GuaiFENesin/Dextromethorphan TABLET PO SCH ×2 (08:47→21:31)
[2018-07-07] MEDS: amLODIPine 5 MG TABLET PO SCH (08:47)
[2018-07-07] MEDS: Acetaminophen 325 MG TABLET PO PRN (08:47)
[2018-07-07 08:57] LABS: BUN/Creatinine Ratio 41 (6-26); Blood Urea Nitrogen 26 mg/dL (6-20); Calcium 9.3 mg/dL (8.6-10.3); Carbon Dioxide 38 mEq/L (23-29); Chloride 89 mEq/L (98-107); Glucose 127 mg/dL (70-105); Osmolality,Calculated 286 (280-300); Potassium 4.8 mEq/L (3.5-5.1); Sodium 135 mEq/L (136-145); eGFR For Non-African Americans > 60 (> 60)
--- NOTE | 2018-07-07 09:33 | Electrocardiograph Report ---
[address] [address] Test Date: 2018-07-03 Pat Name: Prashanth Perrin Department: EXAM20 Room: 2N10 Gender: M Ssn/Ssbn Assistant Navigator: : 1965 Requested By: Joshua Riley Order Number: [id number] Reading MD: Wagner Segovia Measurements Intervals [place] Rate: 102 P: 66 CO: 124 QRS: 82 QRSD: 89 T: 82 QT: 353 QTc: 460 Interpretive Statements Sinus tachycardia Electronically Signed On 07-07-2018 9:31:40 EDT by Wagner Segovia
--- NOTE | 2018-07-07 10:08 | Internal Med Progress Note ---
Hospitalist Progress Note - Encounter Date of Encounter: 07/07/18 Time of Encounter: 10:11 - Subjective Interval History: Patient is still has productive cough and shortness of breath not feeling much improvement. Complaint of fatigue and generalized weakness. Review the lab with trending up white count but no fever. Reviewed the vitals Denied fever chills nausea vomiting headache dizziness chest pain abdominal pain diarrhea - Exam Vitals: Temp Pulse Resp BP Pulse Ox 97.4 F L 72 17 126/89 98 07/07/18 06:39 07/07/18 08:50 07/07/18 07:12 07/07/18 06:39 07/07/18 07:12 Exam: General appearance: Mild respiratory distress. Get out of breath while complet ing the sentence any use slight accessory muscles Eye exam: EOMI, PERRLA ENT exam: Moist oral mucosa Neck nontender, supple Respiratory exam: Decreased breath sounds bilaterally with expiratory wheezing Cardiovascular exam: Regular rate and rhythm, no systolic murmur Abdominal exam: Soft, nontender, nondistended, positive bowel sounds Extremities exam: No calf tenderness, no pedal edema Present: Skin-no rash, warm, dry, intact Neurological exam: Alert, awake, oriented 3, CN II-XII intact, no focal deficits. No facial droop. - Assessment and Plan (1) Acute and chronic respiratory failure Current Visit: Yes Status: Acute Assessment and Plan: Secondary to COPD exacerbation in the setting of pneumonia. Not on acute respiratory distress but is still has persistent difficulty breathing. Please see is below (2) Pneumonia Current Visit: No Status: Acute Assessment and Plan: Patient has evidence of community acquired pneumonia on chest x-ray in symptomatically with shortness of breath and increased cough and sputum production. Patient required oxygen mask, still has respiratory distress on exertion, persistent wheezing, pursue lip breathing, worsening white count on dual antibiotic Rocephin and Zithromax-repeat chest x-ray ordered and also consulted painter tumbling barrel for further management. Consulted respiratory therapist for better pulmonary toileting. Mucomyst i nhaler added (3) Acute exacerbation of chronic obstructive airways disease Current Visit: No Status: Acute Assessment and Plan: Secondary to community-acquired pneumonia. He still has persistent wheezing with dyspnea on exertion. Continue IV Solu-Medrol to 40 mg every 12 hour. Patient take 2 L oxygen at home. Continue scheduled bronchodilators, antibiotics. May need 6 min walk and BiPAP evaluation before discharge. ABG with high PCO2 59 (4) HTN (hypertension) Current Visit: No Status: Chronic Assessment and Plan: Blood pressure under adequate control. Continue home medications. (5) Protein calorie malnutrition Current Visit: Yes Status: Acute Assessment and Plan: Dietitian on board (6) DVT prophylaxis Current Visit: No Status: Acute Assessment and Plan: Heparin 5000 units subcutaneous twice a day - Time Spent with Patient Total time spent is greater than 50% in coordination of care (as documented) at patient's floor/unit and/or counseling patient: Internal Medicine: Result - Labs CBC & Chem 7: 07/07/18 07:24 07/07/18 07:24 Labs: Short CBC 07/07/18 Range/Units 07:24 WBC 18.2 H (4.3-11.1) K/mcL Hgb 11.3 L (12.9-16.9) g/dL Hct 37.5 (37.5-50.1) % Plt Count 537 H (140-400) K/mcL BMP 07/07/18 07:24 Sodium 135 L Potassium 4.8 Chloride 89 L Carbon Dioxide 38 H BUN 26 H Creatinine 0.64 L Glucose 127 H Calcium 9.3 - ABG Interpretation ABG results: ABG ABG pH 7.35 pH Units (7.32-7.45) 07/03/18 06:08 ABG pCO2 59 mmHg (35-45) H 07/03/18 06:08 ABG pO2 70 mmHg (85-104) L 07/03/18 06:08 ABG O2 Saturation 92 % (95-98) L 07/03/18 06:08 Consult Discharge Plan - Plan Referrals: Tracie Humphrey, MACHINE FEATHEREDGER AND REDUCER [Advanced Practice Nurse] - 07/11/18 9:15 am (1) Acute and chronic respiratory failure Qualifiers: Respiratory failure complication: hypoxia Qualified Code(s): J96.21 - Acute and chronic respiratory failure with hypoxia (2) Pneumonia Qualifiers: Pneumonia type: due to unspecified organism Laterality: right Lung location: upper lobe of lung Qualified Code(s): J18.1 - Lobar pneumonia, unspecified organism (4) HTN (hypertension) Qualifiers: Hypertension type: essential hypertension Qualified Code(s): I10 - Essential (primary) hypertension (5) Protein calorie malnutrition Qualifiers: Protein-calorie malnutrition severity: severe Qualified Code(s): E43 - Unspecified severe protein-calorie malnutrition
[2018-07-07] MEDS ORDERED: Acetylcysteine 10% 2 ML INHSOL IH SCH (10:15)
[2018-07-07] MEDS: Acetylcysteine 10% 2 ML INHSOL IH SCH ×2 (10:44→15:16)
[2018-07-07] MEDS: *HR* LORazepam 2 MG/ML VIAL IVP PRN (11:44)
--- NOTE | 2018-07-07 12:21 | Pulmonology Consult Note ---
Date of Encounter: 07/07/18 Time of Encounter: 11:00 Assessment and Plan (1) Acute and chronic respiratory failure Current Visit: Yes Status: Acute Patient presenting with acute on chronic hypoxic and hypercapnic respiratory failure secondary to COPD exacerbation. Patient will need on and off BiPAP. Before discharge patient will need BiPAP qualification. As there is evidence of chronic hypercarbia Qualifiers: Respiratory failure complication: hypoxia and hypercapnia Qualified Code(s): J96.21 - Acute and chronic respiratory failure with hypoxia; J96.22 - Acute and chronic respiratory failure with hypercapnia (2) Acute exacerbation of chronic obstructive airways disease Current Visit: No Status: Acute To continue with the scheduled bronchodilators will need albuterol nebulizer and Symbicort twice a day for discharge. Patient will need at least 2 week prednisone taper. Might have a prolonged hospital course patient has severe COPD with emphysematous changes. History of Present Illness Consult date: 07/07/18 Requesting physician: Letitia Cummins Reason for consult: COPD, pneumonia Chief complaint: Shortness of breath with cough and sputum History of present illness: 52-year-old male with past medical history of chronic smoking, COPD with emphysematous changes in the chest imaging come to shortness of breath cough and sputum production looks like COPD exacerbation denies any chest pain chest tightness denies any palpitations syncope patient denies any pedal edema denies any PND patient denies any chest pain denies any focal neurological deficit. Pulmonary was consult for evaluation of this COPD exacerbation. Past Med Surg Social Fam HX - Past Medical History Medical history: COPD, hypertension Psychiatric history: no psych history - Past Surgical History Surgical History: other Additional surgical history: Left knee replacement, Posterior trunk lipoma and right anterior thigh mass removal and biopsy (Per Dr Keene October 2014) - Social History Smoking Status: Former smoker Smokeless Tobacco Status: No Alcohol use: none Drug use: none - Family History Mother Living Status: Hx Family Cancer: Yes (Breast cancer.) Medications and Allergies Albuterol Sulfate [Albuterol Inhaler] 2 puff IH Q4H PRN #0 10/28/14 [History] Ipratropium/Albuterol Sulfate [Combivent Respimat Inhal [place]] 4 gm IH QID 05/24/15 [History] Metoprolol [Lopressor] 50 mg PO BID #120 tablet 07/20/18 [Rx] amLODIPine [Norvasc] 10 mg PO DAILY #60 tablet 09/06/17 [Rx] Fluticasone/Vilanterol [Breo Ellipta 200-25 Mcg INH] 2 puff IH DAILY 07/03/18 [History] Allergy/AdvReac Type Severity Reaction Status Date / Time No Known Allergies Allergy Verified 07/03/18 07:57 All Systems: The remainder of the systems were reviewed and are negative Physical Examination Vital Signs: Vital Signs, Last 4 Hours Temp Pulse Resp BP Pulse Ox 07/07/18 11:58 98.2 F 93 16 120/86 96 07/07/18 10:45 17 98 07/07/18 08:50 72 General appearance: no acute distress Effort: mildly labored Auscultation: bilateral: wheezes, rales (minimal scattered rales) Cardiovascular: regular rate and rhythm Gastrointestinal: hypoactive bowel sounds Extremities: no cyanosis, no edema normal mental status, non-focal exam Results - Laboratory Findings CBC and BMP: 07/07/18 07:24 07/07/18 07:24 ABG ABG pH 7.35 pH Units (7.32-7.45) 07/03/18 06:08 ABG pCO2 59 mmHg (35-45) H 07/03/18 06:08 ABG pO2 70 mmHg (85-104) L 07/03/18 06:08 ABG O2 Saturation 92 % (95-98) L 07/03/18 06:08 Abnormal lab findings: Abnormal lab results WBC 18.2 K/mcL (4.3-11.1) H 07/07/18 07:24 RBC 4.17 M/mcL (4.19-5.50) L 07/06/18 08:44 Hgb 11.3 g/dL (12.9-16.9) L 07/07/18 07:24 Hct 36.6 % (37.5-50.1) L 07/06/18 08:44 MCH 26.3 pg (28.0-33.3) L 07/07/18 07:24 MCHC 30.1 g/dL (31.6-35.5) L 07/07/18 07:24 Plt Count 537 K/mcL (140-400) H 07/07/18 07:24 MPV 9.3 fL (9.4-12.4) L 07/05/18 08:25 15.7 K/mcL (1.6-8.9) H 07/05/18 08:25 0.3 K/mcL (0.6-4.6) L 07/03/18 06:59 1.9 K/mcL (0.0-1.3) H 07/02/18 22:29 ABG pCO2 59 mmHg (35-45) H 07/03/18 06:08 ABG pO2 70 mmHg (85-104) L 07/03/18 06:08 ABG HCO3 33 mEq/L (21-27) H 07/03/18 06:08 ABG Total CO2 34 mEq/L (20-26) H 07/03/18 06:08 ABG O2 Saturation 92 % (95-98) L 07/03/18 06:08 ABG Base Excess 5 mEq/L (-2 to 3) H 07/03/18 06:08 Sodium 135 mEq/L (136-145) L 07/07/18 07:24 Chloride 89 mEq/L (98-107) L 07/07/18 07:24 Carbon Dioxide 38 mEq/L (23-29) H 07/07/18 07:24 BUN 26 mg/dL (6-20) H 07/07/18 07:24 0.64 mg/dL (0.70-1.30) L 07/07/18 07:24 41 (6-26) H 07/07/18 07:24 Glucose 127 mg/dL (70-105) H 07/07/18 07:24 5.7 % (-5.6) H 07/03/18 06:59 - Microbiology Findings Microbiology Findings: Microbiology, Last 48 Hours 07/03/18 05:45 Sputum Culture - Final Sputum - Clinical Findings Intake & Output: Intake & Output 07/06/18 07/07/18 07/07/18 23:59 07:59 15:59 Intake Total 1030 / 1280 250 / 490 240 / 490 Output Total 1900 / 2950 1100 / 1800 700 / 1800 Balance -870 / -1670 -850 / -1310 -460 / -1310 Consult Discharge Plan - Plan Referrals: Tracie Humphrey, JUKEBOX CHECKER [Advanced Practice Nurse] - 07/11/18 9:15 am
[2018-07-07] MEDS: cefTRIAXone 1,000 MG in Water for inj. (sterile) 20 ML 10 ML IVP SCH (21:31)
[2018-07-07] MEDS: Azithromycin 500 MG in D5% in Water 250 ML IVPB SCH (21:32)
[2018-07-08] MEDS: Ipratropium/Albuterol Neb 3 ML IH SCH ×6 (00:05→20:19)
[2018-07-08] MEDS: Acetylcysteine 10% 2 ML INHSOL IH SCH ×3 (00:05→15:25)
[2018-07-08] MEDS: *HR* Heparin 5,000 UNIT/ML VIAL SQ SCH ×2 (05:55→18:29)
[2018-07-08] MEDS: MethylPREDNISolone 40 MG/ML VIAL IVP SCH ×2 (05:56→18:29)
[2018-07-08 07:40] LABS: Mean Corpuscular Volume 86.6 fL (83.0-100.0)
[2018-07-08 07:42] LABS: Hematocrit 37.5 % (37.5-50.1); Hemoglobin 11.5 g/dL (12.9-16.9); Mean Corpuscular HGB Conc 30.7 g/dL (31.6-35.5); Mean Corpuscular Hemoglobin 26.6 pg (28.0-33.3); Mean Platelet Volume 9.1 fL (9.4-12.4); Platelet Count 584 K/mcL (140-400); Red Blood Count 4.33 M/mcL (4.19-5.50); Red Cell Distribution Width 13.5 % (11.5-14.5)
[2018-07-08 07:56] LABS: BUN/Creatinine Ratio 45 (6-26); Blood Urea Nitrogen 27 mg/dL (6-20); Calcium 9.2 mg/dL (8.6-10.3); Carbon Dioxide 39 mEq/L (23-29); Chloride 90 mEq/L (98-107); Glucose 120 mg/dL (70-105); Osmolality,Calculated 280 (280-300); Sodium 132 mEq/L (136-145); eGFR For Non-African Americans > 60 (> 60)
[2018-07-08 08:47] LABS: Lymphocytes # 4.3 K/mcL (0.6-4.6); Monocytes # 2.7 K/mcL (0.0-1.3); Neutrophils # 19.7 K/mcL (1.6-8.9)
[2018-07-08] MEDS: GuaiFENesin/Dextromethorphan TABLET PO SCH ×2 (09:20→21:14)
[2018-07-08] MEDS: amLODIPine 5 MG TABLET PO SCH (09:20)
[2018-07-08] MEDS: *HR* OxyCODONE Immed Rel 5 MG TABLET PO PRN ×2 (09:21→23:24)
--- NOTE | 2018-07-08 11:15 | Internal Med Progress Note ---
Hospitalist Progress Note - Encounter Date of Encounter: 07/08/18 Time of Encounter: 10:52 - Subjective Interval History: Patient is still complaining of shortness of breath. Cough but not able to get out good a sputum. A spiked low-grade temperature. Review of the lab with trending up white count. Denies nausea vomiting headache dizziness chest pain abdominal pain diarrhea. Complains of chills - Exam Vitals: Temp Pulse Resp BP Pulse Ox 99.7 F H 92 16 136/97 98 07/08/18 08:25 07/08/18 08:25 07/08/18 08:25 07/08/18 08:25 07/08/18 08:25 Exam: General appearance: Mild respiratory distress. Get out of breath while completing the sentence Eye exam: EOMI, PERRLA ENT exam: Moist oral mucosa Neck nontender, supple Respiratory exam: Decreased breath sounds bilaterally with expiratory wheezing Cardiovascular exam: Regular rate and rhythm, no systolic murmur Abdominal exam: Soft, nontender, nondistended, positive bowel sounds Extremities exam: No calf tenderness, no pedal edema Present: Skin-no rash, warm, dry, intact Neurological exam: Alert, awake, oriented 3, CN II-XII intact, no focal deficits. No facial droop. - Assessment and Plan (1) Acute and chronic respiratory failure Current Visit: Yes Status: Acute Assessment and Plan: Secondary to COPD exacerbation in the setting of pneumonia. Not on acute respiratory distress but is still has persistent difficulty breathing. Consulted full stack developer-who advised to continue scheduled bronchodilator and Symbicort, will require off and on BiPAP and need BiPAP qualification test before discharge.. Evidence of chronic hypercarbia.Patient will need at least 2 week prednisone taper. Might have a prolonged hospital course patient has severe COPD with emphysematous changes. (2) Pneumonia Current Visit: No Status: Acute Assessment and Plan: Patient has evidence of community acquired pneumonia on chest x-ray in symptomatically with shortness of breath and increased cough and sputum production. Patient required oxygen mask, still has respiratory distress on exertion, per sistent wheezing, pursue lip breathing, worsening white count on dual antibiotic Rocephin and Zithromax-repeat chest x-ray with no infiltrate. Patient had low-grade temperature with worsening white count and is still persistent shortness of breath. Repeat blood culture urine culture ordered and change antibiotic a to Zosyn. Started Rocephin and Zithromax. Consulted respiratory therapist for better pulmonary toileting. Mucomyst inhaler added (3) Acute exacerbation of chronic obstructive airways disease Current Visit: No Status: Acute Assessment and Plan: Secondary to community-acquired pneumonia. He still has persistent wheezing with dyspnea on exertion. Continue IV Solu-Medrol to 40 mg every 12 hour. Patient take 2 L oxygen at home. Continue scheduled bronchodilators, antibiotics. May need 6 min walk and BiPAP evaluation before discharge. ABG with high PCO2 59 (4) HTN (hypertension) Current Visit: No Status: Chronic Assessment and Plan: Blood pressure under adequate control. Continue home medications. (5) Protein calorie malnutrition Current Visit: Yes Status: Acute Assessment and Plan: Dietitian on board (6) DVT prophylaxis Current Visit: No Status: Acute Assessment and Plan: Heparin 5000 units subcutaneous twice a day (7) Goals of care, counseling/discussion Current Visit: Yes Status: Acute Assessment and Plan: SPENT MORE THAN 35 minute inpatient care in communication with patient nursing staff and microsoft infrastructure consultant. - Time Spent with Patient Total time spent is greater than 50% in coordination of care (as documented) at patient's floor/unit and/or counseling patient: Greater than 35 minutes Plan of Care Discussed with: patient Internal Medicine: Result - Labs CBC & Chem 7: 07/08/18 06:53 07/08/18 06:53 Labs: Short CBC 07/08/18 Range/Units 06:53 WBC 26.6 H (4.3-11.1) K/mcL Hgb 11.5 L (12.9-16.9) g/dL Hct 37.5 (37.5-50.1) % Plt Count 584 H (140-400) K/mcL Neutrophils # 19.7 H (1.6-8.9) K/mcL BMP 07/08/18 06:53 Sodium 132 L Potassium 5.0 Chloride 90 L Carbon Dioxide 39 H BUN 27 H Creatinine 0.60 L Glucose 120 H Calcium 9.2 - ABG Interpretation ABG results: ABG ABG pH 7.35 pH Units (7.32-7.45) 07/03/18 06:08 ABG pCO2 59 mmHg (35-45) H 07/03/18 06:08 ABG pO2 70 mmHg (85-104) L 07/03/18 06:08 ABG O2 Saturation 92 % (95-98) L 07/03/18 06:08 - Impressions Impressions Chest X-Ray 07/07/18 10:04 IMPRESSION: Emphysema with no infiltrate noted. D/ / 07/07/2018 11:32:15 Fransico España MD / bozena Interpreting Provider: Fransico España MD Consult Discharge Plan - Plan Referrals: Tracie Humphrey, SHAFTING CLEANER [Advanced Practice Nurse] - 07/11/18 9:15 am (1) Acute and chronic respiratory failure Qualifiers: Respiratory failure complication: hypoxia Qualified Code(s): J96.21 - Acute and chronic respiratory failure with hypoxia (2) Pneumonia Qualifiers: Pneumonia type: due to unspecified organism Laterality: right Lung location: upper lobe of lung Qualified Code(s): J18.1 - Lobar pneumonia, unspecified organism (4) HTN (hypertension) Qualifiers: Hypertension type: essential hypertension Qualified Code(s): I10 - Essential (primary) hypertension (5) Protein calorie malnutrition Qualifiers: Protein-calorie malnutrition severity: severe Qualified Code(s): E43 - Unspecified severe protein-calorie malnutrition
[2018-07-08] MEDS: *HR* LORazepam 2 MG/ML VIAL IVP PRN ×2 (11:24→21:17)
--- NOTE | 2018-07-08 11:24 | Pulmonology Progress Note ---
Date of Encounter: 07/08/18 Time of Encounter: 09:00 Assessment and Plan (1) Acute and chronic respiratory failure Current Visit: Yes Status: Acute Most likely with COPD exacerbation as patient has severe emphysematous changes patient will need to significant oxygen requirement on discharge. Will send him home on a 2 week steroid taper to complete a course of the total 5 days of doxycycline sent home on albuterol nebulizer and Symbicort twice a day we will see him in clinic in 4-6 weeks. Pulmonary will sign off. Qualifiers: Respiratory failure complication: hypoxia and hypercapnia Qualified Code(s): J96.21 - Acute and chronic respiratory failure with hypoxia; J96.22 - Acute and chronic respiratory failure with hypercapnia (2) Acute exacerbation of chronic obstructive airways disease Current Visit: No Status: Acute Current Predominant presentation was secondary to exacerbation of COPD see plan above. Patient will need to be sitting around continue to have incentive spirometry exercise patient is deconditioned will need definitely increased oxygen requirement to maintain excercise tolerance Subjective Principal diagnosis: COPD exacerbation Interval history: Patient does not have any active areas overnight patient feels a lot better and his cough and sputum production patient denies any chest pain chest tightness denies any palpitations syncope Objective PUL Vital signs: Last Vital Signs Temp 99.7 F H 07/08/18 08:25 Pulse 92 07/08/18 08:25 Resp 16 07/08/18 08:25 BP 136/97 07/08/18 08:25 Pulse Ox 98 07/08/18 08:25 General appearance: no acute distress Effort: mildly labored Auscultation: bilateral: diminished breath sounds (Diminished bases), wheezes (Minimal scattered wheezes) Cardiovascular: regular rate and rhythm Gastrointestinal: normoactive bowel sounds Extremities: no edema normal mental status, non-focal exam Results - Laboratory Findings CBC and BMP: 07/08/18 06:53 07/08/18 06:53 ABG ABG pH 7.35 pH Units (7.32-7.45) 07/03/18 06:08 ABG pCO2 59 mmHg (35-45) H 07/03/18 06:08 ABG pO2 70 mmHg (85-104) L 07/03/18 06:08 ABG O2 Saturation 92 % (95-98) L 07/03/18 06:08 Abnormal lab findings: Abnormal lab results WBC 26.6 K/mcL (4.3-11.1) H 07/08/18 06:53 RBC 4.17 M/mcL (4.19-5.50) L 07/06/18 08:44 Hgb 11.5 g/dL (12.9-16.9) L 07/08/18 06:53 Hct 36.6 % (37.5-50.1) L 07/06/18 08:44 MCH 26.6 pg (28.0-33.3) L 07/08/18 06:53 MCHC 30.7 g/dL (31.6-35.5) L 07/08/18 06:53 Plt Count 584 K/mcL (140-400) H 07/08/18 06:53 MPV 9.1 fL (9.4-12.4) L 07/08/18 06:53 19.7 K/mcL (1.6-8.9) H 07/08/18 06:53 0.3 K/mcL (0.6-4.6) L 07/03/18 06:59 2.7 K/mcL (0.0-1.3) H 07/08/18 06:53 Slight increase (Normal) H 07/08/18 06:53 ABG pCO2 59 mmHg (35-45) H 07/03/18 06:08 ABG pO2 70 mmHg (85-104) L 07/03/18 06:08 ABG HCO3 33 mEq/L (21-27) H 07/03/18 06:08 ABG Total CO2 34 mEq/L (20-26) H 07/03/18 06:08 ABG O2 Saturation 92 % (95-98) L 07/03/18 06:08 ABG Base Excess 5 mEq/L (-2 to 3) H 07/03/18 06:08 Sodium 132 mEq/L (136-145) L 07/08/18 06:53 Chloride 90 mEq/L (98-107) L 07/08/18 06:53 Carbon Dioxide 39 mEq/L (23-29) H 07/08/18 06:53 BUN 27 mg/dL (6-20) H 07/08/18 06:53 0.60 mg/dL (0.70-1.30) L 07/08/18 06:53 45 (6-26) H 07/08/18 06:53 Glucose 120 mg/dL (70-105) H 07/08/18 06:53 5.7 % (-5.6) H 07/03/18 06:59 - Microbiology Findings Microbiology Findings: Microbiology, Last 48 Hours 07/02/18 22:29 Blood Culture - Final Peripheral Venipuncture No growth. Final report. 07/02/18 22:29 Blood Culture - Final Peripheral Venipuncture No growth. Final report. - Clinical Findings Intake & Output: Intake & Output 07/07/18 07/08/18 07/08/18 23:59 07:59 15:59 Intake Total 120 / 120 Output Total 200 / 2250 600 / 825 225 / 825 Balance -200 / -1760 -600 / -705 -105 / -705 Weight 77.1 kg Consult Discharge Plan - Plan Referrals: Tracie Humphrey, DRAFTING LAYOUT MAN [Advanced Practice Nurse] - 07/11/18 9:15 am
[2018-07-08 16:24] LABS: Bilirubin,Urine Negative (Negative); Blood,Urine Negative (Negative); Clarity,Urine Clear (Clear); Color,Urine Yellow (Yellow); Glucose,Urine (UA) Normal (Normal); Ketones,Urine Negative (Negative); Leukocyte Esterase,Urine Negative (Negative); Nitrite,Urine Negative (Negative); Protein,Urine Negative (Neg-Trace); Specific Gravity,Urine 1.022 (1.010-1.025); Urobilinogen,Urine Normal (Normal)
[2018-07-08] MEDS: Piperacillin/Tazobactam 3.375 GM in 0.9 % Sodium Chloride Mini Bag 100 ML IVPB SCH ×2 (16:44→23:26)
[2018-07-08] MEDS: Acetaminophen 325 MG TABLET PO PRN (21:13)
[2018-07-09] MEDS: Ipratropium/Albuterol Neb 3 ML IH SCH ×7 (00:18→23:45)
[2018-07-09] MEDS: Acetylcysteine 10% 2 ML INHSOL IH SCH ×4 (00:18→23:45)
[2018-07-09] MEDS: Acetaminophen 325 MG TABLET PO PRN (04:14)
[2018-07-09] MEDS: *HR* OxyCODONE Immed Rel 5 MG TABLET PO PRN ×2 (05:55→19:47)
[2018-07-09] MEDS: MethylPREDNISolone 40 MG/ML VIAL IVP SCH ×2 (05:58→17:06)
[2018-07-09] MEDS: *HR* Heparin 5,000 UNIT/ML VIAL SQ SCH ×2 (05:59→17:06)
[2018-07-09] MEDS: Piperacillin/Tazobactam 3.375 GM in 0.9 % Sodium Chloride Mini Bag 100 ML IVPB SCH (08:04)
[2018-07-09] MEDS: GuaiFENesin/Dextromethorphan TABLET PO SCH ×2 (08:04→19:47)
[2018-07-09] MEDS: amLODIPine 5 MG TABLET PO SCH (08:04)
[2018-07-09] MEDS: *HR* LORazepam 2 MG/ML VIAL IVP PRN ×3 (08:09→23:03)
--- NOTE | 2018-07-09 08:16 | Internal Med Progress Note ---
Hospitalist Progress Note - Encounter Date of Encounter: 07/09/18 Time of Encounter: 09:00 - Subjective Interval History: Being managed for acute hypoxic resp failure 2/2 to COPD exacerbation - Exam Vitals: Temp Pulse Resp BP Pulse Ox 97.9 F 74 18 115/87 99 07/09/18 07:34 07/09/18 07:34 07/09/18 07:34 07/09/18 07:34 07/09/18 07:34 Exam: General appearance: Mild respiratory distress. Lethargic Eye exam: EOMI, PERRLA ENT exam: Moist oral mucosa Neck nontender, supple Respiratory exam: Decreased breath sounds bilaterally with expiratory wheezing Cardiovascular exam: Regular rate and rhythm, no systolic murmur Abdominal exam: Soft, nontender, nondistended, positive bowel sounds Extremities exam: No calf tenderness, no pedal edema Present: Skin-no rash, warm, dry, intact Neurological exam: Alert, awake, oriented 3, CN II-XII intact, no focal deficits. No facial droop. - Assessment and Plan (1) Acute and chronic respiratory failure Current Visit: Yes Status: Acute Assessment and Plan: Pt has acute on chronic hypoxic hypercapneic respiratory failure 2/2 to acute COPd exacerbation and pneumonia Continue on nebs, steroids and antibiotics Pt lethargic and altered this am. Broadened antibiotic coverage. Will obtain ABG (2) Pneumonia Current Visit: Yes Status: Acute Assessment and Plan: Patient has evidence of community acquired pneumonia on chest x-ray in symptomatically with shortness of breath and increased cough and sputum pro duction. Patient required oxygen mask, still has respiratory distress on exertion, persistent wheezing, pursue lip breathing, worsening white count on dual antibiotic with Rocephin and Zithromax-repeat chest x-ray with no infiltrate. Antibiotics broadened to vanc and zosyn due to worsening leukocytosis and lethargy ID consulted and appreciate recs (3) Acute exacerbation of chronic obstructive airways disease Current Visit: Yes Status: Acute Assessment and Plan: On nebs, steroids and antibiotics (4) HTN (hypertension) Current Visit: Yes Status: Chronic Assessment and Plan: Blood pressure under adequate control. Continue home medications. (5) Protein calorie malnutrition Current Visit: Yes Status: Acute Assessment and Plan: Dietitian on board (6) Goals of care, counseling/discussion Current Visit: Yes Status: Acute Assessment and Plan: SPENT MORE THAN 35 minute inpatient care in communication with patient nursing staff and database consultant. (7) DVT prophylaxis Current Visit: No Status: Acute Assessment and Plan: Heparin 5000 units subcutaneous twice a day - Time Spent with Patient Total time spent is greater than 50% in coordination of care (as documented) at patient's floor/unit and/or counseling patient: Internal Medicine: Result - Labs CBC & Chem 7: 07/09/18 08:03 07/09/18 08:03 Labs: Short CBC 07/08/18 Range/Units 06:53 Neutrophils # 19.7 H (1.6-8.9) K/mcL Urine 07/08/18 Range/Units 15:55 Urine Color Yellow (Yellow) Urine Clarity Clear (Clear) Urine pH 7.0 (5.0-8.0) pH Units Ur Specific [place] 1.022 (1.010-1.025) Urine Protein Negative (Neg-Trace) mg/dL Urine Glucose (UA) Normal (Normal) mg/dL - ABG Interpretation ABG results: ABG ABG pH 7.35 pH Units (7.32-7.45) 07/03/18 06:08 ABG pCO2 59 mmHg (35-45) H 07/03/18 06:08 ABG pO2 70 mmHg (85-104) L 07/03/18 06:08 ABG O2 Saturation 92 % (95-98) L 07/03/18 06:08 - Impressions Impressions Chest X-Ray 07/07/18 10:04 IMPRESSION: Emphysema with no infiltrate noted. D/ / 07/07/2018 11:32:15 Fransico España MD / bozena Interpreting Provider: Fransico España MD Consult Discharge Plan - Plan Referrals: Tracie Humphrey, ZOOLOGY TEACHER [Advanced Practice Nurse] - 07/11/18 9:15 am (1) Acute and chronic respiratory failure Qualifiers: Respiratory failure complication: hypoxia Qualified Code(s): J96.21 - Acute and chronic respiratory failure with hypoxia (2) Pneumonia Qualifiers: Pneumonia type: due to unspecified organism Laterality: right Lung location: upper lobe of lung Qualified Code(s): J18.1 - Lobar pneumonia, unspecified orga nism (4) HTN (hypertension) Qualifiers: Hypertension type: essential hypertension Qualified Code(s): I10 - Essential (primary) hypertension (5) Protein calorie malnutrition Qualifiers: Protein-calorie malnutrition severity: severe Qualified Code(s): E43 - Unspecified severe protein-calorie malnutrition
[2018-07-09 09:00] LABS: Hemoglobin 11.5 g/dL (12.9-16.9)
[2018-07-09 09:02] LABS: Hematocrit 37.1 % (37.5-50.1); Mean Corpuscular Hemoglobin 26.6 pg (28.0-33.3); Mean Corpuscular Volume 85.7 fL (83.0-100.0); Platelet Count 626 K/mcL (140-400); Red Blood Count 4.33 M/mcL (4.19-5.50); Red Cell Distribution Width 13.7 % (11.5-14.5)
[2018-07-09 09:20] LABS: BUN/Creatinine Ratio 43 (6-26); Blood Urea Nitrogen 29 mg/dL (6-20); Calcium 9.3 mg/dL (8.6-10.3); Carbon Dioxide 37 mEq/L (23-29); Chloride 90 mEq/L (98-107); Glucose 114 mg/dL (70-105); Osmolality,Calculated 283 (280-300); Potassium 4.9 mEq/L (3.5-5.1); Sodium 133 mEq/L (136-145); eGFR For Non-African Americans > 60 (> 60)
[2018-07-09 09:45] LABS: Anisocytosis 1+ (Not Present); Lymphocytes # 4.7 K/mcL (0.6-4.6); Monocytes # 2.7 K/mcL (0.0-1.3); Platelet Estimate Increased (Normal)
--- NOTE | 2018-07-09 10:30 | Infectious Disease Consult ---
Infectious Disease-Consult - Encounter Date/Time Date of Encounter: 07/09/18 Time of Encounter: 10:27 - Data of Consult Patient: new to practice Reason for consult: PNA, worsening leukocytosis Consult date: 07/09/18 Requesting Physician: Kevin Bennett, Primary Care Provider: PCP NONE - HPI HPI: Mr. Perrin is a 52-year-old male with past medical history of O2 dependent COPD and hypertension. The patient was admitted to the hospital 07/02/18 for COPD, respiratory failure, and community-acquired pneumonia. We are consulted 07/09/18 for further workup and treatment recommendations for worsening leukocytosis and pneumonia. Briefly, the patient is a 52-year-old male with a past medical history as stated above. The patient presented to the emergency department on the day of admission with a 2 day history of shortness of breath and cough. Upon arrival, the patient had a low-grade temp of 100. He was tachycardic and tachypneic with hypertension. He had leukocytosis with neutrophilic predominance. Renal function, lactic acid, and troponin were negative. He had a chest x-ray that showed a right middle lobe focal opacity concerning for pneumonia and advanced emphysema. The cultures were obtained 2 sets and were negative. He was started empirically on Rocephin and Zithromax and admitted to the hospital for further evaluation. Since admission, the patient's leukocytosis initially resolved. He was started on IV steroids and redevelops leukocytosis. He had a sputum culture that was in terpreted as normal upper respiratory tract nara. Strep pneumococcal and Legionella antigens were negative. Respiratory infectious panel was negative. On 07/07/18 he had a repeat chest x-ray that showed emphysematous changes without infiltrate. Pulmonology was consulted to assist with management of the patient's advanced COPD. Her calcitonin was checked and was 0.06. Repeat blood cultures were obtained 07/08/18 after the patient developed a temperature of 99.7. Urinalysis was checked and was negative. Today, the patient's white blood cell count is 33 with 4% bands. His IV antibiotics were escalated to Vanco and Zosyn. We have been asked to evaluate and make further recommendations. On my exam today, the patient states that overall he does not feel any better since being admitted to the hospital. He continues to endorse fevers, chills, and rigors. Denies any headache or neck pain. Complains of some nasal congestion, but denies any earache or sore throat. Reports the shortness of breath is not improved. Complaints of chest tightness and states he feels like he cannot get enough air. However, when I initially walked in the room the patient was sleeping soundly on 4 L nasal cannula with SPO2 in the 90s. The patient reports some nausea, but states he was able to eat breakfast this morning. Denies any vomiting. Reports generalized abdominal pain. Denies urinary complaints. Denies oral thrush or skin rashes. He is currently requesting pain medication. The patient lives at home with his family. He does not work outside the home. He denies any tobacco, alcohol, or illicit drug use. He denies any chronic infectious diseases. Denies any recent travel. Denies any pet or animal exposures. - ROS Review of Systems: All systems reviewed and no additional remarkable complaints except as stated. - Results CBC & Chem 7: 07/10/18 08:29 07/10/18 08:29 - Exam Vitals: Temp Pulse Resp BP Pulse Ox 97.9 F 70 18 115/87 99 07/09/18 07:34 07/09/18 08:12 07/09/18 07:34 07/09/18 07:34 07/09/18 07:34 Exam: Head: Atraumatic, normal inspection, normocephalic. Eye: EOMI, PERRLA, no scleral icterus noted. ENT: Mucous membranes moist. No odontogenic infection noted. Neck: Normal inspection, no meningismus. Respiratory: Difficult to auscultate due to transmitted upper airway sounds, but no obvious rhonchi or wheezes or crackles noted. Cardiovascular: Regular rate and rhythm, S1 and S2 audible. No murmurs, rubs, or gallops. GI: Soft, nondistended, normal bowel sounds. Generalized tenderness noted on palpation. Extremities:No joint swelling, pedal edema, or tenderness noted. Back: Normal inspection. No vertebral tenderness noted. Neurological: Alert, oriented 3, no focal deficits. Psychiatric: normal affect, normal mood. Appears anxious. Skin: Dry, intact, warm. Normal color. No rashes. Albuterol Sulfate [Albuterol Inhaler] 2 puff IH Q4H PRN #0 10/28/14 [History] Ipratropium/Albuterol Sulfate [Combivent Respimat Inhal Bon[place]] 4 gm IH QID 05/24/15 [History] Metoprolol [Lopressor] 50 mg PO BID #120 tablet 09/06/17 [Rx] amLODIPine [Norvasc] 10 mg PO DAILY #60 tablet 09/06/17 [Rx] Fluticasone/Vilanterol [Breo Ellipta 200-25 Mcg INH] 2 puff IH DAILY 07/03/18 [History] Allergy/AdvReac Type Severity Reaction Status Date / Time No Known Allergies Allergy Verified 07/03/18 07:57 - Assessment and Plan (1) Sepsis Current Visit: Yes Status: Acute The patient had 4 sepsis criteria on admission. Likely secondary to pneumonia and COPD. Improved. Afebrile. Tachycardia and tachypnea resolved. Leukocytosis persists, likely secondary to steroids. Blood cultures drawn 07/02/18 are negative 2 sets. Repeat blood cultures on 07/08/18 are pending 2 sets. Pro-calcitonin was negative. Qualifiers: Sepsis type: sepsis due to unspecified organism Qualified Code(s): A41.9 - Sepsis, unspecified organism SNOMED Code(s): 20522176 (2) Leukocytosis Current Visit: No Status: Acute WBC up to 33,000 with 4% bands. At this point, the patient has no other source of infection and clinically appears to be doing okay. It is a very good possibility that the leukocytosis is related to the large amount of steroids the patient is on. Qualifiers: Leukocytosis type: unspecified Qualified Code(s): D72.829 - Elevated white blood cell count, unspecified SNOMED Code(s): 072930329, 058754738 (3) Pneumonia Current Visit: Yes Status: Acute Location: Right middle lobe. Causative organism: Unclear. Chest x-ray showed a right middle lobe focal opacity and advanced emphysema. Repeat chest x-ray 07/07/18 showed emphysema without infiltrate. Pulmonology was consult and signed off. Strep pneumococcal and legionella urinary antigens were negative. Respiratory infectious panel was negative. Sputum culture was interpreted as normal upper respiratory tract nara. The patient does state that he sometimes chokes when he eats. Currently on vancomycin and Zosyn. Qualifiers: Pneumonia type: due to unspecified organism Laterality: right Lung location: upper lobe of lung Qualified Code(s): J18.1 - Lobar pneumonia, unspecified organism SNOMED Code(s): 134777322 (4) Acute exacerbation of chronic obstructive airways disease Current Visit: Yes Status: Acute Supportive care per the primary team (O2, steroids, breathing treatments) SNOMED Code(s): 277608051 (5) Acute and chronic respiratory failure Current Visit: Yes Status: Acute Likely secondary to COPD and pneumonia. Improved. Qualifiers: Respiratory failure complication: hypoxia Qualified Code(s): J96.21 - Acute and chronic respiratory failure with hypoxia SNOMED Code(s): 47477666 (6) HTN (hypertension) Current Visit: Yes Status: Chronic Qualifiers: Hypertension type: essential hypertension Qualified Code(s): I10 - Essential (primary) hypertension SNOMED Code(s): 92826835 - Recommendations Recommendations: Given that Procalcitonin negative, low index of suspicion for bacterial infecti on. Await repeat blood cultures to finalize. Check MRSA screen stat. Continue to trend CBC. Check amylase, lipase, and LFTs. CT head ordered by the primary team. Get CT of the chest, abdomen and pelvis to evaluate for infectious process. --> CT chest concerning for spiculated mass in the [place]. Recommend Pulmonology to re- evaluate. Discontinue Vanc and Zosyn. Re-stat Rocephin 2 grams IV daily and azithromycin 500mg IV daily. Consider YOKE SETTER to evaluate for possible aspiration. Duration of treatment depends on the clinical picture, but likely a total of 10 days. Can likely switch to PO antibiotics when ready for discharge. Monitor renal function and dose-adjust antibiotics. Past Med Surg Social Fam HX - Past Medical History Attestation: Yes The following information was validated with the patient. Source: patient, old records reviewed, nursing notes reviewed Medical history: COPD, hypertension Psychiatric history: no psych history - Past Surgical History Surgical History: other Additional surgical history: Left knee replacement, Posterior trunk lipoma and right anterior thigh mass removal and biopsy (Per Dr Keene October 2014) - Social History Smoking Status: Former smoker Smokeless Tobacco Status: No Alcohol use: none Drug use: none - Family History Mother Living Status: Hx Family Cancer: Yes (Breast cancer.) Consult Discharge Plan - Plan Referrals: Tracie Humphrey, LEAD SUPPLY WORKER [Advanced Practice Nurse] - 07/11/18 9:15 am - Attending Attestation I have personally performed a face to face evaluation on this patient. I have reviewed and agree with the care plan. History and Exam by me shows: Patient seen and examined. Tells me he does have intermittent hemoptysis. Patient was incarcerated in the past. Denies history of HIV, hepatitis or tuberculosis Assessment and plan: Pneumonia right middle lobe causative organism not clear Spiculated lung mass measuring 21 cm Advanced COPD Leukocytosis Cachexia with some muscle wasting Recommendations Procol serotonin is negative so not sure if this is viral pneumonia versus atypical pneumonia versus noninfectious COPD exacerbation I we will de-escalate antibiotics to finish a 10 day course with Rocephin and azithromycin Await pulmonary to evaluate the spiculated mass Very low index of suspicion for TB
[2018-07-09 11:57] LABS: Alanine Aminotransferase 51 Units/L (7-52); Albumin 3.5 g/dL (3.5-5.7); Albumin/Globulin Ratio 1.3 (1.1-2.2); Alkaline Phosphatase 65 Units/L (34-104); Amylase 42 Units/L (29-103); Aspartate Amino Transferase 29 Units/L (13-39); Bilirubin,Indirect 0.2 mg/dL (0.0-1.2); Bilirubin,Total 0.2 mg/dL (0.3-1.0); Globulin 2.8 g/dL (2.4-3.5); Lipase 39 Units/L (11-82); Total Protein 6.3 g/dL (6.4-8.9)
[2018-07-09] MEDS ORDERED: Aminoglycoside Consult 1 EACH MC ONE (14:36)
[2018-07-09] MEDS: Azithromycin 500 MG in D5% in Water 250 ML IVPB SCH (14:42)
[2018-07-09] MEDS: cefTRIAXone 2,000 MG in Water for inj. (sterile) 20 ML 20 ML IVP SCH (14:42)
[2018-07-10] MEDS: Ipratropium/Albuterol Neb 3 ML IH SCH ×5 (03:25→20:12)
[2018-07-10] MEDS: *HR* OxyCODONE Immed Rel 5 MG TABLET PO PRN ×2 (05:37→19:23)
[2018-07-10] MEDS: MethylPREDNISolone 40 MG/ML VIAL IVP SCH ×2 (05:37→16:33)
[2018-07-10] MEDS: *HR* Heparin 5,000 UNIT/ML VIAL SQ SCH ×2 (05:37→16:33)
[2018-07-10] MEDS: GuaiFENesin/Dextromethorphan TABLET PO SCH ×2 (07:35→19:23)
[2018-07-10] MEDS: amLODIPine 5 MG TABLET PO SCH (07:35)
[2018-07-10] MEDS: Acetylcysteine 10% 2 ML INHSOL IH SCH ×2 (07:46→16:01)
--- NOTE | 2018-07-10 07:55 | Internal Med Progress Note ---
Hospitalist Progress Note - Encounter Date of Encounter: 07/10/18 Time of Encounter: 08:00 - Subjective Interval History: Admitted for acute hypoxic hypercapneic respiratory failure 2/2 to COPD exacerbation - Exam Vitals: Temp Pulse Resp BP Pulse Ox 97.9 F 72 17 130/84 99 07/10/18 07:28 07/10/18 07:38 07/10/18 07:28 07/10/18 07:28 07/10/18 07:28 Exam: General appearance: Mild respiratory distress. Lethargic Eye exam: EOMI, PERRLA ENT exam: Moist oral mucosa Neck nontender, supple Respiratory exam: Decreased breath sounds bilaterally with expiratory wheezing Cardiovascular exam: Regular rate and rhythm, no systolic murmur Abdominal exam: Soft, nontender, nondistended, positive bowel sounds Extremities exam: No calf tenderness, no pedal edema Present: Skin-no rash, warm, dry, intact Neurological exam: Alert, awake, oriented 3, CN II-XII intact, no focal deficits. No facial droop. - Assessment and Plan (1) Acute and chronic respiratory failure Current Visit: Yes Status: Acute Assessment and Plan: Pt has acute on chronic hypoxic hypercapneic respiratory failure 2/2 to acute COPD exacerbation and pneumonia Continue on nebs, steroids and antibiotics Continue antibiotic coverage per ID recs, qualify for home BIPAP (2) Pneumonia Current Visit: Yes Status: Acute Assessment and Plan: Patient has evidence of community acquired pneumonia on chest x-ray, and has shortness of breath and increased cough and sputum production. Patient required oxygen mask, still has respiratory distress on exertion, persistent wheezing, pursue lip breathing, worsening white count on dual antibiotic with Rocephin and Zithromax-repeat chest x-ray with no infiltrate. Antibiotics broadened to vanc and zosyn due to worsening leukocytosis and lethargy 07/10. Patient had a CT abd and CT chest to exclude any infections which may be driving his worsening leukocytosis. Images were negative. Switched back to ceftriaxone and azithromycin by ID. Leukocytosis may be secondary to steroids. Will continue to monitor (3) Acute exacerbation of chronic obstructive airways disease Current Visit: Yes Status: Acute Assessment and Plan: On nebs, steroids and antibiotics (4) HTN (hypertension) Current Visit: Yes Status: Chronic Assessment and Plan: Blood pressure under adequate control. Continue home medications. (5) Protein calorie malnutrition Current Visit: Yes Status: Acute Assessment and Plan: Continue protein supplementation with diet (6) DVT prophylaxis Current Visit: Yes Status: Acute Assessment and Plan: Heparin 5000 units subcutaneous twice a day - Time Spent with Patient Total time spent is greater than 50% in coordination of care (as documented) at patient's floor/unit and/or counseling patient: Internal Medicine: Result - Labs CBC & Chem 7: 07/10/18 08:29 07/10/18 08:29 Labs: Short CBC 07/09/18 Range/Units 08:03 WBC 33.3 H* (4.3-11.1) K/mcL Hgb 11.5 L (12.9-16.9) g/dL Hct 37.1 L (37.5-50.1) % Plt Count 626 H (140-400) K/mcL Neutrophils # 24.0 H (1.6-8.9) K/mcL BMP 07/09/18 08:03 Sodium 133 L Potassium 4.9 Chloride 90 L Carbon Dioxide 37 H BUN 29 H Creatinine 0.68 L Glucose 114 H Calcium 9.3 Liver Function 07/09/18 Range/Units 08:03 Total Bilirubin 0.2 L (0.3-1.0) mg/dL Direct Bilirubin 0.0 (0.0-0.2) mg/dL AST 29 (13-39) Units/L ALT 51 (7-52) Units/L Alkaline Phosphatase 65 (34-104) Units/L Albumin 3.5 (3.5-5.7) g/dL - ABG Interpretation ABG results: ABG ABG pH 7.35 pH Units (7.32-7.45) 07/03/18 06:08 ABG pCO2 59 mmHg (35-45) H 07/03/18 06:08 ABG pO2 70 mmHg (85-104) L 07/03/18 06:08 ABG O2 Saturation 92 % (95-98) L 07/03/18 06:08 - Impressions Impressions Chest CT 07/09/18 10:25 IMPRESSION: Centrilobular emphysematous change with pulmonary granulomatous disease. More pronounced nodular/spiculated area in the left upper lobe measuring 2.0 x 1.0 cm and a new pleural-based nodular focus is seen in the left lower lobe posteriorly measuring 1.6 x 0.7 cm. Follow-up per the [employer] Society criteria is given below. RECOMMENDATIONS: Fleischner Society guidelines for follow-up and management of incidentally detected pulmonary nodules: Multiple Solid Nodules: Nodule size greater than 8 mm In a low-risk patient, CT at 3-6 months, then consider CT at 18-24 months. In a high-risk patient, CT at 3-6 months, then CT at 18-24 months. - Low risk patients include individuals with minimal or absent history of smoking and other known risk factors. - High risk patients include individuals with a history or smoking or known risk factors. Radiology 2017 http://pubs.rsna.org/doi/full/10.1148/radiol.1384947975 D/ / Ajith Lopez / Ajith Lopez Interpreting Provider: Ajith Lopez Head CT 07/09/18 11:00 IMPRESSION: 1.No acute intracranial abnormality. D/ / Ever Wills MD / Ever Wills MD Interpreting Provider: Ever Wills MD Abdomen/Pelvis CT 07/09/18 11:10 IMPRESSION: 1. No acute intra-abdominal or pelvic abnormality. D/ / 07/09/2018 12:11:03 Fransico España MD / jayshree Interpreting Provider: Fransico España MD Consult Discharge Plan - Plan Referrals: Tracie Humphrey, DECK ENGINE OPERATOR [Advanced Practice Nurse] - 07/11/18 9:15 am (1) Acute and chronic respiratory failure Qualifiers: Respiratory failure complication: hypoxia Qualified Code(s): J96.21 - Acute and chronic respiratory failure with hypoxia (2) Pneumonia Qualifiers: Pneumonia type: due to unspecified organism Laterality: right Lung location: upper lobe of lung Qualified Code(s): J18.1 - Lobar pneumonia, unspecified organism (4) HTN (hypertension) Qualifiers: Hypertension type: essential hypertension Qualified Code(s): I10 - Essential (primary) hypertension (5) Protein calorie malnutrition Qualifiers: Protein-calorie malnutrition severity: severe Qualified Code(s): E43 - Unspecified severe protein-calorie malnutrition
[2018-07-10 08:58] LABS: Hematocrit 39.6 % (37.5-50.1); Hemoglobin 11.8 g/dL (12.9-16.9); Mean Corpuscular HGB Conc 29.8 g/dL (31.6-35.5); Mean Corpuscular Hemoglobin 26.5 pg (28.0-33.3); Mean Corpuscular Volume 88.8 fL (83.0-100.0); Mean Platelet Volume 8.9 fL (9.4-12.4); Platelet Count 588 K/mcL (140-400); Red Blood Count 4.46 M/mcL (4.19-5.50)
[2018-07-10 09:12] LABS: BUN/Creatinine Ratio 46 (6-26); Blood Urea Nitrogen 28 mg/dL (6-20); Calcium 8.9 mg/dL (8.6-10.3); Carbon Dioxide 37 mEq/L (23-29); Chloride 90 mEq/L (98-107); Glucose 119 mg/dL (70-105); Osmolality,Calculated 283 (280-300); Potassium 4.5 mEq/L (3.5-5.1); Sodium 133 mEq/L (136-145); eGFR For Non-African Americans > 60 (> 60)
[2018-07-10] MEDS: *HR* LORazepam 2 MG/ML VIAL IVP PRN ×2 (09:28→19:27)
--- NOTE | 2018-07-10 10:01 | Infectious Disease Progress No ---
ID Progress Note Date of Encounter: 07/10/18 Time of Encounter: 09:15 - Subjective Subjective: Patient seen and examined. No acute events noted overnight. Patient states his breathing is a little bit better. He does report some shortness of breath since he just worked with physical therapy. Reports a cough productive of yellow/green sputum this morning. Reports pleuritic chest pain that is worse with cough or deep inspiration. Denies fevers, chills, rigors. Reports some intermittent nausea, but states his appetite is okay. Denies abdominal pain or urinary complaints. Denies oral thrush or skin lesions. States last bowel movement was last night. - Objective CBC & Chem 7: 07/11/18 05:44 07/11/18 05:44 - Exam Vitals: Temp Pulse Resp BP Pulse Ox 97.9 F 72 18 130/84 99 07/10/18 07:28 07/10/18 07:38 07/10/18 07:46 07/10/18 07:28 07/10/18 07:46 Exam: Head: Atraumatic, normal inspection, normocephalic. Eye: EOMI, PERRLA, no scleral icterus noted. ENT: Mucous membranes moist. No odontogenic infection noted. Neck: Normal inspection, no meningismus. Respiratory: Diminished throughout, but no obvious rhonchi or wheezes or crac kles noted. Tachypneic. Cardiovascular: Regular rate and rhythm, S1 and S2 audible. No murmurs, rubs, or gallops. GI: Soft, nondistended, normal bowel sounds. Generalized tenderness noted on palpation. Extremities: No joint swelling, pedal edema, or tenderness noted. Back: Normal inspection. No vertebral tenderness noted. Neurological: Alert, oriented 3, no focal deficits. Psychiatric: normal affect, normal mood. Skin: Dry, intact, warm. Normal color. No rashes. - Assessment and Plan (1) Sepsis Current Visit: Yes Status: Acute The patient had 4 sepsis criteria on admission. Likely secondary to pneumonia and COPD. Improved. Afebrile. Tachycardia and tachypnea resolved. Leukocytosis persists but stabilized, likely secondary to steroids. Blood cultures drawn 07/02/18 are negative 2 sets. Repeat blood cultures on 07/08/18 are NGTD2 sets. Pro-calcitonin was negative. Qualifiers: Sepsis type: sepsis due to unspecified organism Qualified Code(s): A41.9 - Sepsis, unspecified organism SNOMED Code(s): 90894694 (2) Leukocytosis Current Visit: No Status: Acute WBC up to 33,000 with 4% bands. At this point, the patient has no other source of infection and clinically appears to be doing okay. It is a very good possibility that the leukocytosis is related to the large amount of steroids the patient is on. Procalcitonin negative. CT abdomen and pelvis negative. CT chest shows a spiculated nodule --? Malignancy. Will ask pulmonology to re-evaluate. Qualifiers: Leukocytosis type: unspecified Qualified Code(s): D72.829 - Elevated white blood cell count, unspecified SNOMED Code(s): 929209200, 560269816 (3) Pneumonia Current Visit: Yes Status: Acute Location: Right middle lobe. Causative organism: Unclear. Chest x-ray showed a right middle lobe focal opacity and advanced emphysema. Repeat chest x-ray 07/07/18 showed emphysema without infiltrate. Pulmonology was consulted and signed off. Strep pneumococcal and legionella urinary antigens were negative. Respiratory infectious panel was negative. Sputum culture was interpreted as normal upper respiratory tract nara. MRSA screen negative. The patient does state that he sometimes chokes when he eats. Currently on Rocephin and azithromycin. Qualifiers: Pneumonia type: due to unspecified organism Laterality: right Lung location: upper lobe of lung Qualified Code(s): J18.1 - Lobar pneumonia, unspecified organism SNOMED Code(s): 087012367 (4) Lung nodule Current Visit: Yes Status: Acute CT of the chest shows a more pronounced nodular/spiculated area in the left upper lobe measuring 2 x 1 cm and a new pleural-based nodular focus seen within the left lower lobe posteriorly measuring 1.6 x 0.7 cm. Given the patient's extensive smoking history (2-3 packs per day for greater than 30 years), concern for malignancy. Discussed with pulmonology who will reevaluate the patient. SNOMED Code(s): 551802391 (5) Acute exacerbation of chronic obstructive airways disease Current Visit: Yes Status: Acute Supportive care per the primary team (O2, steroids, breathing treatments). SNOMED Code(s): 918224879 (6) Acute and chronic respiratory failure Current Visit: Yes Status: Acute Likely secondary to COPD and pneumonia. Improved. Qualifiers: Respiratory failure complication: hypoxia Qualified Code(s): J96.21 - Acute and chronic respiratory failure with hypoxia SNOMED Code(s): 49263003 (7) HTN (hypertension) Current Visit: Yes Status: Chronic Qualifiers: Hypertension type: essential hypertension Qualified Code(s): I10 - Essential (primary) hypertension SNOMED Code(s): 16656646 - Recommendations Recommendations: Await repeat blood cultures to finalize. Continue to trend CBC with diff. Recommend Pulmonology to re-evaluate. Continue Rocephin 2 grams IV daily. Continue azithromycin 500mg IV daily. Consider ACID CORRECTION HAND to evaluate for possible aspiration. Duration of treatment depends on the clinical picture, but likely a total of 10 days. Can likely switch to PO antibiotics when ready for discharge. Monitor renal function and dose-adjust antibiotics. Consult Discharge Plan - Plan Instructions: Pneumonia (DC) Referrals: Tracie Humphrey CNP [Advanced Practice Nurse] - 07/11/18 9:15 am Alexey Persaud MD [Partnered Physician] - 08/22/18 9:30 am Prescriptions: GuaiFENesin/Dextromethorphan [Mucinex Dm] 1 each PO BID #60 tab.er.12h predniSONE [PredniSONE] 40 mg PO DAILY 7 Days #14 tablet predniSONE [PredniSONE] 20 mg PO DAILY 7 Days #7 tablet - Attending Attestation I have personally performed a face to face evaluation on this patient. I have reviewed and agree with the care plan. History and Exam by me shows: Assessment and plan: 1.Pneumonia right middle lobe causative organism not clear 2.Spiculated lung mass measuring 21 cm 3.Advanced COPD 4.Leukocytosis 5.Cachexia with some muscle wasting Recommendations continue rocephin and azithromycin aggressive neb treatments prognosis guarded appreciate pulmonary input
[2018-07-10 11:37] LABS: Eosinophils # 0.3 K/mcL (0.0-0.6); Monocytes # 2.4 K/mcL (0.0-1.3); Neutrophils # 26.9 K/mcL (1.6-8.9)
[2018-07-10 11:38] LABS: Platelet Estimate Increased (Normal); Toxic Granulation Present (Not Present)
[2018-07-10] MEDS: cefTRIAXone 2,000 MG in Water for inj. (sterile) 20 ML 20 ML IVP SCH (13:26)
[2018-07-10] MEDS: Azithromycin 500 MG in D5% in Water 250 ML IVPB SCH (13:27)
[2018-07-10] MEDS: Acetaminophen 325 MG TABLET PO PRN (23:18)
--- NOTE | 2018-07-10 23:24 | Event Note ---
Date of Encounter: 07/10/18 Time of Encounter: 13:00 Left upper lobe spiculated nodule will needs outpatient follow-up arranged an appointment with me in clinic. Discussed with primary hospitalist.
[2018-07-11] MEDS: Ipratropium/Albuterol Neb 3 ML IH SCH ×4 (00:18→11:17)
[2018-07-11] MEDS: Acetylcysteine 10% 2 ML INHSOL IH SCH ×3 (00:19→11:17)
[2018-07-11 06:11] LABS: Hemoglobin 10.8 g/dL (12.9-16.9); Red Cell Distribution Width 14.1 % (11.5-14.5)
[2018-07-11 06:12] LABS: Hematocrit 35.2 % (37.5-50.1); Mean Corpuscular HGB Conc 30.7 g/dL (31.6-35.5); Mean Corpuscular Hemoglobin 26.5 pg (28.0-33.3); Mean Corpuscular Volume 86.3 fL (83.0-100.0); Mean Platelet Volume 8.6 fL (9.4-12.4); Platelet Count 536 K/mcL (140-400); Red Blood Count 4.08 M/mcL (4.19-5.50)
[2018-07-11 06:29] LABS: BUN/Creatinine Ratio 43 (6-26); Blood Urea Nitrogen 29 mg/dL (6-20); Calcium 8.6 mg/dL (8.6-10.3); Carbon Dioxide 39 mEq/L (23-29); Chloride 91 mEq/L (98-107); Glucose 108 mg/dL (70-105); Magnesium 2.1 mg/dL (1.6-2.6); Osmolality,Calculated 284 (280-300); Phosphorous 4.3 mg/dL (2.7-4.5); Potassium 4.9 mEq/L (3.5-5.1); Sodium 134 mEq/L (136-145); eGFR For Non-African Americans > 60 (> 60)
[2018-07-11] MEDS: MethylPREDNISolone 40 MG/ML VIAL IVP SCH (06:29)
[2018-07-11] MEDS: *HR* Heparin 5,000 UNIT/ML VIAL SQ SCH (06:29)
[2018-07-11] MEDS: *HR* OxyCODONE Immed Rel 5 MG TABLET PO PRN (06:29)
[2018-07-11 07:56] LABS: Lymphocytes # 1.7 K/mcL (0.6-4.6); Monocytes # 1.1 K/mcL (0.0-1.3); Neutrophils # 23.9 K/mcL (1.6-8.9); Platelet Estimate Normal (Normal)
[2018-07-11] MEDS: GuaiFENesin/Dextromethorphan TABLET PO SCH (08:04)
[2018-07-11] MEDS: amLODIPine 5 MG TABLET PO SCH (08:04)
--- NOTE | 2018-07-11 09:57 | Physician Discharge Referral ---
- Diagnosis (1) Acute and chronic respiratory failure Priority: Primary Status: Acute (2) Pneumonia Priority: Primary Status: Acute (3) Acute exacerbation of chronic obstructive airways disease Priority: Primary Status: Acute (4) HTN (hypertension) Priority: Primary Status: Chronic (5) Protein calorie malnutrition Priority: Primary Status: Acute (6) DVT prophylaxis Priority: Primary Status: Acute - Transfer Medications Prescriptions: GuaiFENesin/Dextromethorphan [Mucinex Dm] 1 each PO BID #60 tab.er.12h predniSONE [PredniSONE] 40 mg PO DAILY 7 Days #14 tablet predniSONE [PredniSONE] 20 mg PO DAILY 7 Days #7 tablet Home Medications: Albuterol Sulfate [Albuterol Inhaler] 2 puff IH Q4H PRN #0 10/28/14 [History] Ipratropium/Albuterol Sulfate [Combivent Respimat Inhal [place]] 4 gm IH QID 05/24/15 [History] Metoprolol [Lopressor] 50 mg PO BID #120 tablet 09/06/17 [Rx] amLODIPine [Norvasc] 10 mg PO DAILY #60 tablet 09/06/17 [Rx] Fluticasone/Vilanterol [Breo Ellipta 200-25 Mcg INH] 2 puff IH DAILY 07/03/18 [History] GuaiFENesin/Dextromethorphan [Mucinex Dm] 1 each PO BID #60 tab.er.12h 07/11/18 [Rx] predniSONE [PredniSONE] 20 mg PO DAILY 7 Days #7 tablet 07/11/18 [Rx] predniSONE [PredniSONE] 40 mg PO DAILY 7 Days #14 tablet 07/11/18 [Rx] Allergies/Adverse Reactions: Allergy/AdvReac Type Severity Reaction Status Date / Time No Known Allergies Allergy Verified 07/03/18 07:57 - Respiratory Orders Smoking Cessation: Smoking cessation has been advised. For more information, call the [place] Tobacco Quit Line at 2-205-YUIV-NOW. - Mobility Orders Ambulate - Diet Orders Cardiac CERTIFICATION: I certify that the transfer of the above named patient to an Extended Care Facility is necessary for the continuing treatment of the diagnosis listed. The above information is true and accurate reflection of patient's current condition. Confidential - Redisclosure prohibited without a patient's written consent.
--- NOTE | 2018-07-11 09:57 | Discharge Summary ---
Date of Encounter: 07/11/18 Time of Encounter: 08:00 - Discharge Diagnosis (1) Acute and chronic respiratory failure Priority: Primary Status: Acute Assessment and Plan: 52 year old male with past medical history of COPD and hypertension who presented to the ED complaining of worsening shortness of breath. He reports the shortness of breath onset 3 days ago and progressively has worsened. Shortness of breath is present at rest and worsens with exertion. Is associated with productive cough. He is usually on 2 L of nasal cannula at all times at home and reports even with that his oxygen saturation was 90%. He denies any recent sick exposures. He is also complaining of diffuse tightness around his bilateral chest which worsens with cough and is reproducible upon palpation. He denies any abdominal pain, lower extremity edema, orthopnea, PND, nausea or emesis He was assessed with acute on chronic hypoxic hypercapneic respiratory failure 2/2 to acute COPD exacerbation and pneumonia. He was started on BIPAP, broad spectrum antibiotics and IV steroids. Pulmonary was consulted who recommended an overnight BIPAP qualification due to his chronic hypercarbia. BIPAP qualification was performed and he did not qualify. He had a worsening leukocytosis which is thought to be steroid induced. He completed a 7 day total course of ceftriaxone and azithromycin and vanc and zosyn. He was discharged to an ECF on a 2 week steroid taper. He was back to his baseline oxygen levels at time of discharge. 35 minutes was spent discharging this patient Qualifiers: Respiratory failure complication: hypoxia Qualified Code(s): J96.21 - Acute and chronic respiratory failure with hypoxia (2) Pneumonia Priority: Primary Status: Acute Qualifiers: Pneumonia type: due to unspecified organism Laterality: right Lung location: upper lobe of lung Qualified Code(s): J18.1 - Lobar pneumonia, unspecified organism (3) Acute exacerbation of chronic obstructive airways disease Priority: Primary Status: Acute (4) HTN (hypertension) Priority: Primary Status: Chronic Qualifiers: Hypertension type: essential hypertension Qualified Code(s): I10 - Essential (primary) hypertension (5) Protein calorie malnutrition Priority: Primary Status: Acute Qualifiers: Protein-calorie malnutrition severity: severe Qualified Code(s): E43 - Unspecified severe protein-calorie malnutrition (6) DVT prophylaxis Priority: Primary Status: Acute Hospital course: Mr. Perrin is a 52 year old male - Time Spent with Patient Total time spent providing and/or coordinating discharge services: - Discharge Medications Prescriptions: New GuaiFENesin/Dextromethorphan [Mucinex Dm] 1 each PO BID #60 tab.er.12h predniSONE [PredniSONE] 40 mg PO DAILY 7 Days #14 tablet predniSONE [PredniSONE] 20 mg PO DAILY 7 Days #7 tablet Continued Albuterol Sulfate [Albuterol Inhaler] 2 puff IH Q4H PRN #0 PRN Reason: Shortness Of Breath Ipratropium/Albuterol Sulfate [Combivent Respimat Inhal [place]] 4 gm IH QID amLODIPine [Norvasc] 10 mg PO DAILY #60 tablet Metoprolol [Lopressor] 50 mg PO BID #120 tablet Fluticasone/Vilanterol [Breo Ellipta 200-25 Mcg INH] 2 puff IH DAILY Home Medications: Albuterol Sulfate [Albuterol Inhaler] 2 puff IH Q4H PRN #0 10/28/14 [History] Ipratropium/Albuterol Sulfate [Combivent Respimat Inhal [place]] 4 gm IH QID 05/24/15 [History] Metoprolol [Lopressor] 50 mg PO BID #120 tablet 09/06/17 [Rx] amLODIPine [Norvasc] 10 mg PO DAILY #60 tablet 09/06/17 [Rx] Fluticasone/Vilanterol [Breo Ellipta 200-25 Mcg INH] 2 puff IH DAILY 07/03/18 [History] GuaiFENesin/Dextromethorphan [Mucinex Dm] 1 each PO BID #60 tab.er.12h 07/11/18 [Rx] predniSONE [PredniSONE] 20 mg PO DAILY 7 Days #7 tablet 07/11/18 [Rx] predniSONE [PredniSONE] 40 mg PO DAILY 7 Days #14 tablet 07/11/18 [Rx] Allergies/Adverse Reactions: Allergy/AdvReac Type Severity Reaction Status Date / Time No Known Allergies Allergy Verified 07/03/18 07:57 Date of admission: 07/03/18 05:42 Primary care physician: PCP NONE Consults: 07/03/18 01:52 Consult to Nutrition [CONS] Routine Comment: Consulting Provider: NUTRITION Reason for Dietary Consult: MST Score 07/03/18 09:08 Consult to Nurse Navigator [CONS] Routine Comment: pneumonia 07/07/18 10:02 Consult to Pulmonology [CONS] Routine Consulting Provider: Pulm Crit Care [facility] Sleep [facility] Reason for Consult: Pneumonia, severe COPD-not much improvement, worsening WBC Call Completed: No 07/07/18 10:06 Consult to Switchboard Operator [CONS] Routine Reason for SW Consult: Discharge plan 07/07/18 12:57 Consult to Occupational Therapy [CONS] Routine Comment: Evaluate, develop and implement POC Reason for Consult: weakness Does patient have active BEDREST order?: No Is patient medically & hemodynamically stable?: Yes Patient assessed for mobility or mobilized this visit?: Yes Consult to Physical Therapy [CONS] Routine Comment: Evaluate, develop and implement POC Reason for Consult: weakness Does patient have active BEDREST order?: No Is patient medically & hemodynamically stable?: Yes Patient assessed for mobility or mobilized this visit?: Yes 07/08/18 11:03 Consult to Respiratory Therapy [CONS] Routine Reason for Consult: [place] therapy Call Completed: Yes 07/09/18 10:06 Consult to Infectious Diseases [CONS] Routine Consulting Provider: Infectious Disease [place] Reason for Consult: worsening leukcoytosis, ams, low grade fever Call Completed: No - Constitutional Vitals: Temp Pulse Resp BP Pulse Ox 97.9 F 77 16 124/85 96 07/11/18 07:58 07/11/18 07:58 07/11/18 07:58 07/11/18 07:58 07/11/18 07:58 Exam: General appearance: NAD Eye exam: EOMI, PERRLA ENT exam: Moist oral mucosa Neck nontender, supple Respiratory exam: Improved, wheezing decreased Cardiovascular exam: Regular rate and rhythm, no systolic murmur Abdominal exam: Soft, nontender, nondistended, positive bowel sounds Extremities exam: No calf tenderness, no pedal edema Present: Skin-no rash, warm, dry, intact Neurological exam: Alert, awake, oriented 3, CN II-XII intact, no focal deficits. No facial droop. - Patient Status Disposition: Transfer LTC Condition: Fair - Discharge Instructions Instructions: Pneumonia (DC) Follow Up With: Tracie Humphrey CNP [Advanced Practice Nurse] - 07/11/18 9:15 am Alexey Persaud MD [Partnered Physician] - 08/22/18 9:30 am Forms: ED Satisfaction Letter
[2018-07-11] MEDS ORDERED: Budesonide/Formoterol 160/4.5 1 PUFF INH IH SCH (10:00)
[2018-07-11] MEDS: *HR* LORazepam 2 MG/ML VIAL IVP PRN (10:42)
--- NOTE | 2018-07-11 10:43 | Infectious Disease Progress No ---
ID Progress Note Date of Encounter: 07/11/18 Time of Encounter: 09:40 - Subjective Subjective: Patient seen and examined. No acute events noted overnight. Patient states his breathing is a little bit better. He does report some shortness of breath with exertion. Reports a cough productive of yellow/green sputum this morning. Reports pleuritic chest pain that is worse with cough or deep inspiration. Denies fevers, chills, rigors. Denies nausea so far today and states his appetite is okay. Denies abdominal pain or urinary complaints. Denies oral thrush or skin lesions. States last bowel movement was yesterday. - Objective CBC & Chem 7: 07/11/18 05:44 07/11/18 05:44 - Exam Vitals: Temp Pulse Resp BP Pulse Ox 97.9 F 77 16 124/85 96 07/11/18 07:58 07/11/18 07:58 07/11/18 07:58 07/11/18 07:58 07/11/18 07:58 Exam: Head: Atraumatic, normal inspection, normocephalic. Eye: EOMI, PERRLA, no scleral icterus noted. ENT: Mucous membranes moist. No odontogenic infection noted. Neck: Normal inspection, no meningismus. Respiratory: Coarse rhonchi throughout, moist cough noted. No tachypnea noted. Cardiovascular: Regular rate and rhythm, S1 and S2 audible. No murmurs, rubs, or gallops. GI: Soft, nondistended, normal bowel sounds. Generalized tenderness noted on palpation. Extremities: No joint swelling, pedal edema, or tenderness noted. Back: Normal inspection. No vertebral tenderness noted. Neurological: Alert, oriented 3, no focal deficits. Psychiatric: normal affect, normal mood. Skin: Dry, intact, warm. Normal color. No rashes. - Assessment and Plan (1) Sepsis Status: Acute The patient had 4 sepsis criteria on admission. Likely secondary to pneumonia and COPD. Improved. Afebrile. Tachycardia and tachypnea resolved. Leukocytosis persists but improved, likely secondary to steroids. Blood cultures drawn 07/02/18 are negative 2 sets. Repeat blood cultures on 07/08/18 are NGTD2 sets. Pro-calcitonin was negative. Qualifiers: Sepsis type: sepsis due to unspecified organism Qualified Code(s): A41.9 - Sepsis, unspecified organism SNOMED Code(s): 75855471 (2) Leukocytosis Status: Acute WBC up to 33,000 with 4% bands. Improved. At this point, the patient has no other source of infection and clinically appears to be doing okay. It is a very good possibility that the leukocytosis is related to the large amount of steroids the patient is on. Procalcitonin negative. CT abdomen and pelvis negative. CT chest shows a spiculated nodule --? Malignancy, but likely not infectious. Qualifiers: Leukocytosis type: unspecified Qualified Code(s): D72.829 - Elevated white blood cell count, unspecified SNOMED Code(s): 770171841, 921595804 (3) Pneumonia Status: Acute Location: Right middle lobe. Causative organism: Unclear. Chest x-ray showed a right middle lobe focal opacity and advanced emphysema. Repeat chest x-ray 07/07/18 showed emphysema without infiltrate. Pulmonology was consulted and signed off. Plan to follow up on spiculated nodule as an outpatient. Strep pneumococcal and legionella urinary antigens were negative. Respiratory infectious panel was negative. Sputum culture was interpreted as normal upper respiratory tract nara. MRSA screen negative. The patient does state that he sometimes chokes when he eats. Currently on Rocephin and azithromycin. Qualifiers: Pneumonia type: due to unspecified organism Laterality: right Lung location: upper lobe of lung Qualified Code(s): J18.1 - Lobar pneumonia, unspecified organism SNOMED Code(s): 640447808 (4) Lung nodule Status: Acute CT of the chest shows a more pronounced nodular/spiculated area in the left upper lobe measuring 2 x 1 cm and a new pleural-based nodular focus seen within the left lower lobe posteriorly measuring 1.6 x 0.7 cm. Given the patient's extensive smoking history (2-3 packs per day for greater than 30 years), concern for malignancy. Discussed with pulmonology who will follow up with the patient outpatient. SNOMED Code(s): 451993214 (5) Acute exacerbation of chronic obstructive airways disease Status: Acute Supportive care per the primary team (O2, steroids, breathing treatments) SNOMED Code(s): 989670505 (6) Acute and chronic respiratory failure Status: Acute Likely secondary to COPD and pneumonia. Improved. Qualifiers: Respiratory failure complication: hypoxia Qualified Code(s): J96.21 - Acute and chronic respiratory failure with hypoxia SNOMED Code(s): 87354099 (7) HTN (hypertension) Status: Chronic Qualifiers: Hypertension type: essential hypertension Qualified Code(s): I10 - Essential (primary) hypertension SNOMED Code(s): 58126183 - Recommendations Recommendations: Await repeat blood cultures to finalize. Continue to trend CBC with diff. Continue Rocephin 2 grams IV daily. Continue azithromycin 500mg IV daily. Consider [employer] to evaluate for possible aspiration. Duration of treatment depends on the clinical picture, but likely a total of 10 days. Can likely switch to PO Augmentin when ready for discharge. Treat through 07/12/18. Monitor renal function and dose-adjust antibiotics. Consult Discharge Plan - Plan Instructions: Pneumonia (DC) Referrals: Tracie Humphrey CNP [Advanced Practice Nurse] - 07/11/18 9:15 am Alexey Persaud MD [Partnered Physician] - 08/22/18 9:30 am Prescriptions: GuaiFENesin/Dextromethorphan [Mucinex Dm] 1 each PO BID #60 tab.er.12h predniSONE [PredniSONE] 40 mg PO DAILY 7 Days #14 tablet predniSONE [PredniSONE] 20 mg PO DAILY 7 Days #7 tablet - Attending Attestation I have personally performed a face to face evaluation on this patient. I have reviewed and agree with the care plan. History and Exam by me shows: ssessment and plan: 1.Pneumonia right middle lobe causative organism not clear 2.Spiculated lung mass measuring 21 cm 3.Advanced COPD 4.Leukocytosis 5.Cachexia with some muscle wasting Recommendations continue rocephin and azithromycin aggressive neb treatments prognosis guarded appreciate pulmonary input
[2018-07-11 11:39] VITALS: BP 123/86
== END 2018-07-11 14:37 | DRG 139 ==
LOC: 2NNU 22:01 → EMEROOARM 22:01 → 2NNU 07-03 01:33 → SUATTDRO 07-03 05:42
PROVIDERS: ADMIT Pediatrics; ATTEND Internal Medicine

== ENCOUNTER 2018-12-26 15:58 | Inpatient (IN) ==
[2018-12-26] MEDS ORDERED: Ipratropium/Albuterol Neb 3 ML IH ONE (16:07)
[2018-12-26] MEDS ORDERED: methylPREDNISolone 125 MG/2 ML VIAL IVP ONE (16:07)
[2018-12-26 16:40] LABS: Basophils % 0.3 %; Eosinophils % 0.1 %; Hematocrit 30.6 % (37.5-50.1); Immature Granulocytes % 0.6 % (0-4); Lymphocytes # 0.4 K/mcL (0.6-4.6); Lymphocytes % 2.6 %; Mean Corpuscular HGB Conc 32.7 g/dL (31.6-35.5); Mean Corpuscular Hemoglobin 26.7 pg (28.0-33.3); Mean Corpuscular Volume 81.8 fL (83.0-100.0); Mean Platelet Volume 8.5 fL (9.4-12.4); Monocytes # 0.6 K/mcL (0.0-1.3); Neutrophils # 14.7 K/mcL (1.6-8.9); Platelet Count 438 K/mcL (140-400); Red Blood Count 3.74 M/mcL (4.19-5.50); Red Cell Distribution Width 13.4 % (11.5-14.5); Segmented Neutrophils % 92.4 %; White Blood Count 15.9 K/mcL (4.3-11.1)
[2018-12-26 16:44] LABS: VBG HCO3 32 mEq/L (21-27); VBG PCO2 46 mmHg (41-51); VBG PH 7.44 pH Units (7.32-7.42); VBG PO2 151 mmHg (25-50)
[2018-12-26 17:03] LABS: BUN/Creatinine Ratio 29 (6-26); Blood Urea Nitrogen 13 mg/dL (6-20); Calcium 8.9 mg/dL (8.6-10.3); Carbon Dioxide 29 mEq/L (23-29); Chloride 85 mEq/L (98-107); Glucose 119 mg/dL (70-105); Osmolality,Calculated 263 (280-300); Potassium 4.4 mEq/L (3.5-5.1); Sodium 126 mEq/L (136-145); Troponin I < 0.03 ng/mL (< 0.04); eGFR For African Americans > 60 (> 60); eGFR For Non-African Americans > 60 (> 60)
[2018-12-26] MEDS ORDERED: Naloxone 0.4 MG/ML INJ IVP PRN (17:34)
[2018-12-26] MEDS ORDERED: Ondansetron 4 MG/2 ML VIAL IVP PRN (17:34)
[2018-12-26] MEDS ORDERED: Levalbuterol Neb 1.25 MG/3 ML IH SCH (17:45)
[2018-12-26] MEDS ORDERED: GuaiFENesin/Codeine Oral Soln 5 ML UDC PO PRN (18:06)
[2018-12-26] MEDS: Acetaminophen 325 MG TABLET PO PRN (18:13)
[2018-12-26] MEDS: cefTRIAXone 1,000 MG in Water for inj. (sterile) 10 ML IVP SCH (18:17)
[2018-12-26] MEDS: 0.9 % Sodium Chloride 1,000 ML IVC SCH (18:17)
[2018-12-26] MEDS: MethylPREDNISolone 40 MG/ML VIAL IVP SCH ×2 (18:17→23:02)
[2018-12-26] MEDS: Azithromycin 500 MG in 0.9 % Sodium Chloride 250 ML IVPB SCH (18:17)
[2018-12-26] MEDS ORDERED: Ipratropium Neb 0.5 MG NEBULIZER IH SCH (20:00)
[2018-12-26] MEDS ORDERED: *HR* LORazepam 2 MG/ML VIAL IVP ONE ×3 (20:01→23:10)
[2018-12-26] MEDS: Budesonide/Formoterol 160/4.5 1 PUFF INH IH SCH (20:10)
[2018-12-26 20:18] LABS: ABG Base Excess 5 mEq/L (-2 to 3); ABG HCO3 32 mEq/L (21-27); ABG Oxygen Saturation 98 % (95-98); ABG PCO2 57 mmHg (35-45); ABG PH 7.36 pH Units (7.32-7.45); ABG PO2 115 mmHg (85-104); ABG TCO2 34 mEq/L (20-26)
[2018-12-26 21:37] LABS: Hematocrit 32.9 % (37.5-50.1); Hemoglobin 10.3 g/dL (12.9-16.9); Mean Corpuscular HGB Conc 31.3 g/dL (31.6-35.5); Mean Corpuscular Hemoglobin 26.1 pg (28.0-33.3); Mean Corpuscular Volume 83.3 fL (83.0-100.0); Mean Platelet Volume 8.9 fL (9.4-12.4); Platelet Count 511 K/mcL (140-400); Red Blood Count 3.95 M/mcL (4.19-5.50); Red Cell Distribution Width 13.2 % (11.5-14.5); White Blood Count 16.9 K/mcL (4.3-11.1)
[2018-12-26] MEDS ORDERED: Haloperidol Lactate 5 MG/ML VIAL ONE (21:42)
[2018-12-26] MEDS ORDERED: *HR* LORazepam 2 MG/ML VIAL ONE (21:44)
[2018-12-26 21:49] LABS: Amphetamine Screen,Urine Positive ng/mL (Cutoff=1000); Barbiturate Screen,Urine Negative ng/mL (Cutoff=200); Benzodiazepines Screen,Urine Negative ng/mL (Cutoff=200); Cannabinoid Screen,Urine Negative ng/mL (Cutoff = 50); Cocaine Screen,Urine Negative ng/mL (Cutoff= 300); Opiate Screen,Urine Negative ng/mL (Cutoff=300); Phencyclidine Screen,Urine Negative ng/mL (Cutoff=25)
[2018-12-26 21:56] LABS: Alanine Aminotransferase 29 Units/L (7-52); Albumin 3.8 g/dL (3.5-5.7); Albumin/Globulin Ratio 1.3 (1.1-2.2); Alkaline Phosphatase 70 Units/L (34-104); Aspartate Amino Transferase 55 Units/L (13-39); BUN/Creatinine Ratio 23 (6-26); Bilirubin,Total 0.5 mg/dL (0.3-1.0); Blood Urea Nitrogen 13 mg/dL (6-20); Calcium 8.9 mg/dL (8.6-10.3); Carbon Dioxide 24 mEq/L (23-29); Chloride 82 mEq/L (98-107); Ethanol < 10 mg/dL (Less than 10); Glucose 167 mg/dL (70-105); Osmolality,Calculated 256 (280-300); Potassium 4.1 mEq/L (3.5-5.1); Sodium 121 mEq/L (136-145); Total Protein 6.8 g/dL (6.4-8.9); eGFR For African Americans > 60 (> 60); eGFR For Non-African Americans > 60 (> 60)
[2018-12-26 21:57] LABS: Troponin I < 0.03 ng/mL (< 0.04)
[2018-12-26 22:39] LABS: Uric Acid 3.7 mg/dL (2.3-7.6)
[2018-12-26] MEDS: *HR* Heparin 5,000 UNIT/ML VIAL SQ SCH (23:02)
[2018-12-26 23:22] LABS: Sodium, Urine 90.2 mEq/L
[2018-12-26] MEDS: Dexmedetomidine HCl 400 MCG/100 ML MLS IVC SCH (23:37)
[2018-12-27] MEDS: Levalbuterol Neb 1.25 MG/3 ML IH SCH ×5 (00:38→16:14)
[2018-12-27] MEDS ORDERED: *HR* LORazepam 2 MG/ML VIAL IVP ONE (04:06)
[2018-12-27] MEDS ORDERED: *HR* LORazepam 2 MG/ML VIAL ONE (04:09)
[2018-12-27] MEDS: *HR* Heparin 5,000 UNIT/ML VIAL SQ SCH ×3 (04:17→20:52)
[2018-12-27] MEDS: MethylPREDNISolone 40 MG/ML VIAL IVP SCH ×3 (04:22→17:13)
[2018-12-27 07:07] LABS: Basophils % 0.1 %; Hematocrit 28.4 % (37.5-50.1); Hemoglobin 9.6 g/dL (12.9-16.9); Immature Granulocytes % 0.8 % (0-4); Lymphocytes # 0.3 K/mcL (0.6-4.6); Lymphocytes % 3.7 %; Mean Corpuscular HGB Conc 33.8 g/dL (31.6-35.5); Mean Platelet Volume 8.8 fL (9.4-12.4); Monocytes # 0.2 K/mcL (0.0-1.3); Monocytes % 2.4 %; Neutrophils # 8.7 K/mcL (1.6-8.9); Platelet Count 396 K/mcL (140-400); Red Blood Count 3.55 M/mcL (4.19-5.50); Red Cell Distribution Width 13.2 % (11.5-14.5); White Blood Count 9.3 K/mcL (4.3-11.1)
[2018-12-27 07:24] LABS: BUN/Creatinine Ratio 32 (6-26); Blood Urea Nitrogen 17 mg/dL (6-20); Calcium 8.5 mg/dL (8.6-10.3); Carbon Dioxide 32 mEq/L (23-29); Chloride 88 mEq/L (98-107); Glucose 127 mg/dL (70-105); Osmolality,Calculated 265 (280-300); Potassium 4.9 mEq/L (3.5-5.1); Sodium 126 mEq/L (136-145); eGFR For African Americans > 60 (> 60); eGFR For Non-African Americans > 60 (> 60)
[2018-12-27] MEDS ORDERED: *HR* LORazepam 2 MG/ML VIAL IVP PRN ×2 (07:48→11:22)
[2018-12-27] MEDS: Budesonide/Formoterol 160/4.5 1 PUFF INH IH SCH ×2 (07:57→22:41)
[2018-12-27] MEDS: cefTRIAXone 1,000 MG in Water for inj. (sterile) 10 ML IVP SCH (08:10)
[2018-12-27] MEDS: amLODIPine 5 MG TABLET PO SCH (08:13)
[2018-12-27] MEDS ORDERED: NON-FORMULARY MEDICATION 1 EACH EACH (Fluticasone/Vilanterol [Breo Ellipta 200-25 Mcg Inh] PO SCH (09:00)
[2018-12-27] MEDS: 0.9 % Sodium Chloride 1,000 ML IVC SCH (11:43)
[2018-12-27] MEDS: Dexmedetomidine HCl 400 MCG/100 ML MLS IVC SCH (14:17)
[2018-12-27] MEDS ORDERED: GI Cocktail 40 ML EACH PO ONE (15:01)
[2018-12-27] MEDS: Ipratropium/Albuterol Neb 3 ML IH SCH ×2 (16:14→22:41)
[2018-12-27] MEDS: Azithromycin 500 MG in 0.9 % Sodium Chloride 250 ML IVPB SCH (17:13)
[2018-12-28] MEDS: 0.9 % Sodium Chloride 1,000 ML IVC SCH ×2 (01:12→13:23)
[2018-12-28 01:24] LABS: Basophils % 0.1 %; Hematocrit 27.6 % (37.5-50.1); Immature Granulocytes % 0.8 % (0-4); Lymphocytes # 0.5 K/mcL (0.6-4.6); Mean Corpuscular HGB Conc 32.6 g/dL (31.6-35.5); Mean Corpuscular Hemoglobin 26.2 pg (28.0-33.3); Mean Corpuscular Volume 80.2 fL (83.0-100.0); Mean Platelet Volume 8.6 fL (9.4-12.4); Monocytes # 1.1 K/mcL (0.0-1.3); Monocytes % 6.8 %; Neutrophils # 13.8 K/mcL (1.6-8.9); Platelet Count 472 K/mcL (140-400); Red Blood Count 3.44 M/mcL (4.19-5.50); Red Cell Distribution Width 13.4 % (11.5-14.5); Segmented Neutrophils % 89.3 %
[2018-12-28 01:25] LABS: White Blood Count 15.5 K/mcL (4.3-11.1)
[2018-12-28 01:44] LABS: BUN/Creatinine Ratio 44 (6-26); Blood Urea Nitrogen 26 mg/dL (6-20); Calcium 8.1 mg/dL (8.6-10.3); Carbon Dioxide 32 mEq/L (23-29); Chloride 93 mEq/L (98-107); Glucose 131 mg/dL (70-105); Osmolality,Calculated 275 (280-300); Potassium 4.4 mEq/L (3.5-5.1); Sodium 129 mEq/L (136-145); eGFR For African Americans > 60 (> 60); eGFR For Non-African Americans > 60 (> 60)
[2018-12-28] MEDS: Ipratropium/Albuterol Neb 3 ML IH SCH ×4 (04:28→22:16)
[2018-12-28 04:36] LABS: Bilirubin,Urine Negative (Negative); Blood,Urine Negative (Negative); Clarity,Urine Clear (Clear); Color,Urine Yellow (Yellow); Glucose,Urine (UA) Normal (Normal); Ketones,Urine Negative (Negative); Leukocyte Esterase,Urine Negative (Negative); Nitrite,Urine Negative (Negative); Protein,Urine Negative (Neg-Trace); Specific Gravity,Urine 1.012 (1.010-1.025); Urobilinogen,Urine Normal (Normal)
[2018-12-28 04:57] LABS: ABG Base Excess 8 mEq/L (-2 to 3); ABG HCO3 35 mEq/L (21-27); ABG Oxygen Saturation 98 % (95-98); ABG PCO2 61 mmHg (35-45); ABG PH 7.36 pH Units (7.32-7.45); ABG PO2 119 mmHg (85-104); ABG TCO2 37 mEq/L (20-26)
[2018-12-28] MEDS: MethylPREDNISolone 40 MG/ML VIAL IVP SCH ×2 (05:47→17:44)
[2018-12-28] MEDS: *HR* Heparin 5,000 UNIT/ML VIAL SQ SCH ×3 (05:48→20:17)
[2018-12-28] MEDS: amLODIPine 5 MG TABLET PO SCH (08:10)
[2018-12-28] MEDS: cefTRIAXone 1,000 MG in Water for inj. (sterile) 10 ML IVP SCH (08:11)
[2018-12-28] MEDS: Budesonide/Formoterol 160/4.5 1 PUFF INH IH SCH ×2 (10:59→22:16)
[2018-12-28] MEDS: Acetaminophen 325 MG TABLET PO PRN (13:21)
[2018-12-28] MEDS: Azithromycin 500 MG in 0.9 % Sodium Chloride 250 ML IVPB SCH (17:42)
[2018-12-29] MEDS: Ipratropium/Albuterol Neb 3 ML IH SCH ×4 (03:56→22:22)
[2018-12-29] MEDS: *HR* Heparin 5,000 UNIT/ML VIAL SQ SCH ×3 (05:14→20:08)
[2018-12-29] MEDS: MethylPREDNISolone 40 MG/ML VIAL IVP SCH ×2 (05:14→16:42)
[2018-12-29 05:49] LABS: Basophils % 0.1 %; Hemoglobin 9.9 g/dL (12.9-16.9); Immature Granulocytes % 0.6 % (0-4); Lymphocytes # 0.6 K/mcL (0.6-4.6); Lymphocytes % 4.5 %; Mean Corpuscular HGB Conc 30.9 g/dL (31.6-35.5); Mean Corpuscular Hemoglobin 26.5 pg (28.0-33.3); Mean Corpuscular Volume 85.8 fL (83.0-100.0); Mean Platelet Volume 8.8 fL (9.4-12.4); Monocytes % 7.5 %; Neutrophils # 11.8 K/mcL (1.6-8.9); Platelet Count 477 K/mcL (140-400); Red Blood Count 3.73 M/mcL (4.19-5.50); Red Cell Distribution Width 13.3 % (11.5-14.5); Segmented Neutrophils % 87.3 %; White Blood Count 13.5 K/mcL (4.3-11.1)
[2018-12-29 06:09] LABS: BUN/Creatinine Ratio 29 (6-26); Blood Urea Nitrogen 17 mg/dL (6-20); Calcium 8.6 mg/dL (8.6-10.3); Carbon Dioxide 38 mEq/L (23-29); Chloride 92 mEq/L (98-107); Glucose 132 mg/dL (70-105); Osmolality,Calculated 281 (280-300); Potassium 4.7 mEq/L (3.5-5.1); Sodium 134 mEq/L (136-145); eGFR For African Americans > 60 (> 60); eGFR For Non-African Americans > 60 (> 60)
[2018-12-29] MEDS: amLODIPine 5 MG TABLET PO SCH (09:01)
[2018-12-29] MEDS: cefTRIAXone 1,000 MG in Water for inj. (sterile) 10 ML IVP SCH (09:02)
[2018-12-29] MEDS: Budesonide/Formoterol 160/4.5 1 PUFF INH IH SCH ×2 (10:42→22:22)
[2018-12-29] MEDS ORDERED: MethylPREDNISolone 40 MG/ML VIAL IVP SCH (14:00)
[2018-12-29] MEDS: Azithromycin 500 MG in 0.9 % Sodium Chloride 250 ML IVPB SCH (16:42)
[2018-12-30 01:24] LABS: Basophils % 0.2 %; Hematocrit 37.5 % (37.5-50.1); Hemoglobin 11.2 g/dL (12.9-16.9); Lymphocytes # 0.4 K/mcL (0.6-4.6); Lymphocytes % 2.7 %; Mean Corpuscular HGB Conc 29.9 g/dL (31.6-35.5); Mean Corpuscular Hemoglobin 25.9 pg (28.0-33.3); Mean Corpuscular Volume 86.8 fL (83.0-100.0); Mean Platelet Volume 8.8 fL (9.4-12.4); Monocytes % 6.3 %; Neutrophils # 13.7 K/mcL (1.6-8.9); Platelet Count 570 K/mcL (140-400); Red Blood Count 4.32 M/mcL (4.19-5.50); Red Cell Distribution Width 13.3 % (11.5-14.5); Segmented Neutrophils % 89.8 %; White Blood Count 15.3 K/mcL (4.3-11.1)
[2018-12-30 01:43] LABS: BUN/Creatinine Ratio 40 (6-26); Blood Urea Nitrogen 32 mg/dL (6-20); Calcium 8.9 mg/dL (8.6-10.3); Carbon Dioxide 38 mEq/L (23-29); Chloride 92 mEq/L (98-107); Glucose 125 mg/dL (70-105); Osmolality,Calculated 290 (280-300); Potassium 5.1 mEq/L (3.5-5.1); Sodium 136 mEq/L (136-145); eGFR For African Americans > 60 (> 60); eGFR For Non-African Americans > 60 (> 60)
[2018-12-30] MEDS: Ipratropium/Albuterol Neb 3 ML IH SCH ×2 (03:58→10:40)
[2018-12-30] MEDS: *HR* Heparin 5,000 UNIT/ML VIAL SQ SCH (05:12)
[2018-12-30] MEDS: MethylPREDNISolone 40 MG/ML VIAL IVP SCH (05:12)
[2018-12-30 07:52] VITALS: BP 124/97
[2018-12-30] MEDS: amLODIPine 5 MG TABLET PO SCH (08:27)
[2018-12-30] MEDS: cefTRIAXone 1,000 MG in Water for inj. (sterile) 10 ML IVP SCH (08:28)
[2018-12-30] MEDS ORDERED: Azithromycin 250 MG TABLET PO ONE (09:31)
[2018-12-30] MEDS: Budesonide/Formoterol 160/4.5 1 PUFF INH IH SCH (10:40)
[2018-12-30] MEDS ORDERED: FLU Vac QV 19-20 (6Month+)/PF 0.5 ML SYRINGE IM ONE (10:46)
== END 2018-12-30 11:22 | disposition home or self-care (01) | DRG 140 ==
LOC: 2NENU 15:58 → EMEROOARM 15:58 → SUATTDRO 17:33 → 2NENU 17:54 → 2NNU 22:23
PROVIDERS: ADMIT Student in an Organized Health Care Education/Training Program; ATTEND Family Medicine

== ENCOUNTER 2019-02-25 17:48 | Inpatient (IN) ==
[2019-02-25] MEDS ORDERED: methylPREDNISolone 125 MG/2 ML VIAL IVP ONE (18:21)
[2019-02-25] MEDS ORDERED: Ipratropium/Albuterol Neb 3 ML IH ONE (18:21)
[2019-02-25 18:23] LABS: Basophils % 0.5 %; Eosinophils # 0.2 K/mcL (0.0-0.6); Eosinophils % 2.3 %; Hematocrit 36.1 % (37.5-50.1); Hemoglobin 11.5 g/dL (12.9-16.9); Immature Granulocytes % 0.4 % (0-4); Lymphocytes % 12.8 %; Mean Corpuscular HGB Conc 31.9 g/dL (31.6-35.5); Mean Corpuscular Hemoglobin 26.7 pg (28.0-33.3); Mean Platelet Volume 8.7 fL (9.4-12.4); Monocytes # 0.8 K/mcL (0.0-1.3); Monocytes % 9.4 %; Platelet Count 459 K/mcL (140-400); Red Cell Distribution Width 14.3 % (11.5-14.5); Segmented Neutrophils % 74.6 %
[2019-02-25 18:26] LABS: INR 1.1; Prothrombin Time 12.7 Seconds (9.4-12.1)
[2019-02-25 18:28] LABS: Activated Partial Thrombo Time 39.8 Seconds (26.0-36.0)
[2019-02-25 18:32] LABS: D-Dimer < 215 ng/mLFEU (0-500)
[2019-02-25 18:46] LABS: Alanine Aminotransferase 9 Units/L (7-52); Albumin 4.4 g/dL (3.5-5.7); Albumin/Globulin Ratio 1.6 (1.1-2.2); Alkaline Phosphatase 80 Units/L (34-104); Aspartate Amino Transferase 12 Units/L (13-39); BUN/Creatinine Ratio 19 (6-26); Bilirubin,Direct 0.1 mg/dL (0.0-0.2); Bilirubin,Indirect 0.2 mg/dL (0.0-1.0); Bilirubin,Total 0.3 mg/dL (0.3-1.0); Blood Urea Nitrogen 14 mg/dL (6-20); Calcium 9.8 mg/dL (8.6-10.3); Carbon Dioxide 31 mEq/L (23-29); Chloride 98 mEq/L (98-107); Globulin 2.7 g/dL (2.4-3.5); Glucose 122 mg/dL (70-105); Osmolality,Calculated 290 (280-300); Potassium 3.9 mEq/L (3.5-5.1); Sodium 139 mEq/L (136-145); Total Protein 7.1 g/dL (6.4-8.9); Troponin I < 0.03 ng/mL (< 0.04); eGFR For African Americans > 60 (> 60); eGFR For Non-African Americans > 60 (> 60)
[2019-02-25] MEDS ORDERED: Naloxone 0.4 MG/ML INJ IVP PRN (21:34)
[2019-02-25] MEDS ORDERED: *HR* Promethazine 25 MG/ML VIAL IVP PRN (21:34)
[2019-02-25] MEDS ORDERED: 0.9 % Sodium Chloride 1,000 ML IVC SCH (21:45)
[2019-02-25] MEDS: Doxycycline 100 MG CAPSULE PO SCH (22:44)
[2019-02-25] MEDS: *HR* Heparin 5,000 UNIT/ML VIAL SQ SCH (22:50)
[2019-02-25 22:56] LABS: Bilirubin,Urine Small (Negative); Blood,Urine Negative (Negative); Clarity,Urine Clear (Clear); Color,Urine Dark Yellow (Yellow); Glucose,Urine (UA) Normal (Normal); Ketones,Urine 40 mg/dL (Negative); Leukocyte Esterase,Urine Negative (Negative); Nitrite,Urine Negative (Negative); PH,Urine 6.5 pH Units (5.0-8.0); Protein,Urine Trace mg/dL (Neg-Trace); Specific Gravity,Urine > 1.030 (1.010-1.025); Urobilinogen,Urine Normal (Normal)
[2019-02-25] MEDS: Ipratropium/Albuterol Neb 3 ML IH SCH (23:36)
[2019-02-26] MEDS: MethylPREDNISolone 40 MG/ML VIAL IVP SCH ×3 (02:42→18:59)
[2019-02-26] MEDS: Benzonatate 100 MG CAPSULE PO PRN (03:09)
[2019-02-26] MEDS: Acetaminophen 325 MG TABLET PO PRN ×2 (03:10→09:13)
[2019-02-26] MEDS: Ipratropium/Albuterol Neb 3 ML IH SCH ×6 (03:29→23:58)
[2019-02-26 04:41] LABS: Basophils % 0.3 %; Hematocrit 35.7 % (37.5-50.1); Hemoglobin 11.5 g/dL (12.9-16.9); Immature Granulocytes % 0.8 % (0-4); Lymphocytes # 0.3 K/mcL (0.6-4.6); Lymphocytes % 4.8 %; Mean Corpuscular HGB Conc 32.2 g/dL (31.6-35.5); Mean Corpuscular Hemoglobin 26.4 pg (28.0-33.3); Mean Corpuscular Volume 81.9 fL (83.0-100.0); Mean Platelet Volume 8.8 fL (9.4-12.4); Monocytes # 0.2 K/mcL (0.0-1.3); Monocytes % 2.7 %; Platelet Count 486 K/mcL (140-400); Red Blood Count 4.36 M/mcL (4.19-5.50); Red Cell Distribution Width 14.1 % (11.5-14.5); Segmented Neutrophils % 91.4 %; White Blood Count 6.6 K/mcL (4.3-11.1)
[2019-02-26 04:58] LABS: BUN/Creatinine Ratio 23 (6-26); Blood Urea Nitrogen 18 mg/dL (6-20); Calcium 9.3 mg/dL (8.6-10.3); Carbon Dioxide 28 mEq/L (23-29); Chloride 100 mEq/L (98-107); Glucose 179 mg/dL (70-105); Magnesium 1.9 mg/dL (1.6-2.6); Osmolality,Calculated 288 (280-300); Potassium 4.2 mEq/L (3.5-5.1); Sodium 136 mEq/L (136-145); eGFR For African Americans > 60 (> 60); eGFR For Non-African Americans > 60 (> 60)
[2019-02-26] MEDS: *HR* Heparin 5,000 UNIT/ML VIAL SQ SCH ×2 (05:32→18:59)
[2019-02-26] MEDS: Doxycycline 100 MG CAPSULE PO SCH ×2 (08:49→21:23)
[2019-02-26] MEDS: amLODIPine 5 MG TABLET PO SCH (08:50)
[2019-02-26] MEDS ORDERED: Budesonide/Formoterol 80/4.5 1 PUFF INH IH SCH (10:00)
[2019-02-26] MEDS ORDERED: 0.9 % Sodium Chloride 1,000 ML IVC ONE (16:20)
[2019-02-26] MEDS ORDERED: *HR* LORazepam 2 MG/ML VIAL IVP ONE (17:18)
[2019-02-26] MEDS ORDERED: 0.9 % Sodium Chloride 1,000 ML ONE (17:30)
[2019-02-26] MEDS: Budesonide/Formoterol 80/4.5 1 PUFF INH IH SCH (19:47)
[2019-02-27] MEDS: Ipratropium/Albuterol Neb 3 ML IH SCH ×4 (03:49→16:21)
[2019-02-27] MEDS: MethylPREDNISolone 40 MG/ML VIAL IVP SCH ×2 (05:30→17:16)
[2019-02-27] MEDS: *HR* Heparin 5,000 UNIT/ML VIAL SQ SCH ×2 (05:30→17:16)
[2019-02-27] MEDS: amLODIPine 5 MG TABLET PO SCH (08:10)
[2019-02-27] MEDS: Doxycycline 100 MG CAPSULE PO SCH ×2 (08:10→21:45)
[2019-02-27] MEDS: Benzonatate 100 MG CAPSULE PO PRN (08:10)
[2019-02-27] MEDS: Budesonide/Formoterol 80/4.5 1 PUFF INH IH SCH ×2 (10:57→22:15)
[2019-02-27 15:04] LABS: Basophils % 0.1 %; Eosinophils % 0.1 %; Hematocrit 32.6 % (37.5-50.1); Hemoglobin 10.4 g/dL (12.9-16.9); Immature Granulocytes % 1.2 % (0-4); Lymphocytes # 0.4 K/mcL (0.6-4.6); Mean Corpuscular HGB Conc 31.9 g/dL (31.6-35.5); Mean Corpuscular Hemoglobin 26.9 pg (28.0-33.3); Mean Corpuscular Volume 84.5 fL (83.0-100.0); Mean Platelet Volume 8.9 fL (9.4-12.4); Monocytes # 1.1 K/mcL (0.0-1.3); Monocytes % 6.1 %; Neutrophils # 16.3 K/mcL (1.6-8.9); Platelet Count 479 K/mcL (140-400); Red Blood Count 3.86 M/mcL (4.19-5.50); Red Cell Distribution Width 14.6 % (11.5-14.5); Segmented Neutrophils % 90.5 %
[2019-02-27 15:06] LABS: Adenovirus Not Detected (Not Detect); Bordetella Pertussis Not Detected (Not Detect); Chlamydophila pneumoniae Not Detected (Not Detect); Coronavirus 229E Not Detected (Not Detect); Coronavirus HKU1 Not Detected (Not Detect); Coronavirus NL63 Not Detected (Not Detect); Coronavirus OC43 Not Detected (Not Detect); Human Metapneumovirus Not Detected (Not Detect); Human Rhinovirus/Enterovirus Not Detected (Not Detect); Influenza A Subtype 2009 H1 Not Detected (Not Detect); Influenza B Not Detected (Not Detect); Mycoplasma pneumoniae Not Detected (Not Detect); Parainfluenza Virus 1 Not Detected (Not Detect); Parainfluenza Virus 2 Not Detected (Not Detect); Parainfluenza Virus 3 Not Detected (Not Detect); Parainfluenza Virus 4 Not Detected (Not Detect); Respiratory Syncytial Virus Not Detected (Not Detect)
[2019-02-27 15:36] LABS: BUN/Creatinine Ratio 26 (6-26); Blood Urea Nitrogen 19 mg/dL (6-20); Calcium 9.1 mg/dL (8.6-10.3); Carbon Dioxide 30 mEq/L (23-29); Chloride 100 mEq/L (98-107); Glucose 134 mg/dL (70-105); Osmolality,Calculated 292 (280-300); Potassium 4.5 mEq/L (3.5-5.1); Sodium 139 mEq/L (136-145); eGFR For African Americans > 60 (> 60); eGFR For Non-African Americans > 60 (> 60)
[2019-02-27] MEDS: Levalbuterol Neb 1.25 MG/3 ML IH SCH (22:15)
[2019-02-28] MEDS: Levalbuterol Neb 1.25 MG/3 ML IH SCH ×4 (04:58→21:56)
[2019-02-28] MEDS: *HR* Heparin 5,000 UNIT/ML VIAL SQ SCH ×2 (05:21→17:51)
[2019-02-28] MEDS: MethylPREDNISolone 40 MG/ML VIAL IVP SCH (05:21)
[2019-02-28 07:30] LABS: Basophils % 0.1 %; Eosinophils % 0.1 %; Hemoglobin 9.9 g/dL (12.9-16.9); Immature Granulocytes % 1.2 % (0-4); Lymphocytes # 0.6 K/mcL (0.6-4.6); Lymphocytes % 4.6 %; Mean Corpuscular HGB Conc 30.9 g/dL (31.6-35.5); Mean Corpuscular Hemoglobin 26.4 pg (28.0-33.3); Mean Corpuscular Volume 85.3 fL (83.0-100.0); Neutrophils # 10.5 K/mcL (1.6-8.9); Platelet Count 423 K/mcL (140-400); Red Blood Count 3.75 M/mcL (4.19-5.50); Red Cell Distribution Width 14.4 % (11.5-14.5); White Blood Count 12.3 K/mcL (4.3-11.1)
[2019-02-28 07:49] LABS: BUN/Creatinine Ratio 32 (6-26); Blood Urea Nitrogen 21 mg/dL (6-20); Calcium 8.5 mg/dL (8.6-10.3); Carbon Dioxide 32 mEq/L (23-29); Chloride 98 mEq/L (98-107); Glucose 123 mg/dL (70-105); Osmolality,Calculated 286 (280-300); Sodium 136 mEq/L (136-145); eGFR For African Americans > 60 (> 60); eGFR For Non-African Americans > 60 (> 60)
[2019-02-28] MEDS: amLODIPine 5 MG TABLET PO SCH (08:38)
[2019-02-28] MEDS: Doxycycline 100 MG CAPSULE PO SCH ×2 (08:39→21:33)
[2019-02-28] MEDS: Budesonide/Formoterol 80/4.5 1 PUFF INH IH SCH ×2 (10:03→21:56)
[2019-02-28] MEDS: Benzonatate 100 MG CAPSULE PO PRN (17:51)
[2019-03-01] MEDS: Levalbuterol Neb 1.25 MG/3 ML IH SCH ×2 (04:16→10:36)
[2019-03-01 06:55] VITALS: BP 112/72
[2019-03-01] MEDS: *HR* Heparin 5,000 UNIT/ML VIAL SQ SCH (06:56)
[2019-03-01] MEDS: Doxycycline 100 MG CAPSULE PO SCH (07:19)
[2019-03-01] MEDS: amLODIPine 5 MG TABLET PO SCH (07:19)
[2019-03-01] MEDS ORDERED: MethylPREDNISolone 40 MG/ML VIAL IVP SCH (09:00)
[2019-03-01 09:20] LABS: Basophils # 0.1 K/mcL (0.0-0.2); Basophils % 0.5 %; Eosinophils # 0.1 K/mcL (0.0-0.6); Eosinophils % 1.2 %; Hematocrit 34.1 % (37.5-50.1); Hemoglobin 10.5 g/dL (12.9-16.9); Immature Granulocytes % 2.6 % (0-4); Lymphocytes # 1.4 K/mcL (0.6-4.6); Lymphocytes % 15.2 %; Mean Corpuscular HGB Conc 30.8 g/dL (31.6-35.5); Mean Corpuscular Hemoglobin 26.6 pg (28.0-33.3); Mean Corpuscular Volume 86.5 fL (83.0-100.0); Monocytes % 10.5 %; Neutrophils # 6.5 K/mcL (1.6-8.9); Platelet Count 431 K/mcL (140-400); Red Blood Count 3.94 M/mcL (4.19-5.50); Red Cell Distribution Width 14.4 % (11.5-14.5); White Blood Count 9.3 K/mcL (4.3-11.1)
[2019-03-01] MEDS: Budesonide/Formoterol 80/4.5 1 PUFF INH IH SCH (10:36)
== END 2019-03-01 11:40 | disposition home or self-care (01) | DRG 140 ==
LOC: EMEROOARM 17:48 → 2ANU 17:48 → SUATTDRO 21:47 → 2ANU 22:08
PROVIDERS: ADMIT Internal Medicine; ATTEND Internal Medicine

== ENCOUNTER 2019-04-21 17:00 | Inpatient (IN) ==
[2019-04-21] MEDS ORDERED: *HR* Metoprolol 5 MG/5 ML VIAL IVP ONE (17:18)
[2019-04-21 17:34] LABS: Basophils % 0.2 %; Eosinophils % 0.2 %; Hematocrit 38.8 % (37.5-50.1); Hemoglobin 11.8 g/dL (12.9-16.9); Immature Granulocytes % 1.1 % (0-4); Lymphocytes # 0.6 K/mcL (0.6-4.6); Lymphocytes % 6.3 %; Mean Corpuscular HGB Conc 30.4 g/dL (31.6-35.5); Mean Corpuscular Hemoglobin 26.3 pg (28.0-33.3); Mean Corpuscular Volume 86.6 fL (83.0-100.0); Mean Platelet Volume 8.4 fL (9.4-12.4); Monocytes # 0.6 K/mcL (0.0-1.3); Monocytes % 6.2 %; Neutrophils # 8.4 K/mcL (1.6-8.9); Platelet Count 389 K/mcL (140-400); Red Blood Count 4.48 M/mcL (4.19-5.50); Red Cell Distribution Width 13.5 % (11.5-14.5); White Blood Count 9.7 K/mcL (4.3-11.1)
[2019-04-21 17:48] LABS: Prothrombin Time 11.2 Seconds (9.4-12.1)
[2019-04-21 17:50] LABS: Activated Partial Thrombo Time 36.3 Seconds (26.0-36.0)
[2019-04-21 18:19] LABS: Alanine Aminotransferase 10 Units/L (7-52); Albumin 4.2 g/dL (3.5-5.7); Albumin/Globulin Ratio 1.6 (1.1-2.2); Alkaline Phosphatase 63 Units/L (34-104); Aspartate Amino Transferase 11 Units/L (13-39); BUN/Creatinine Ratio 14 (6-26); Bilirubin,Total 0.3 mg/dL (0.3-1.0); Blood Urea Nitrogen 10 mg/dL (6-20); Calcium 9.3 mg/dL (8.6-10.3); Carbon Dioxide 30 mEq/L (23-29); Chloride 100 mEq/L (98-107); Digoxin < 0.3 ng/mL (0.8-2.0); Globulin 2.7 g/dL (2.4-3.5); Glucose 139 mg/dL (70-105); Magnesium 1.8 mg/dL (1.6-2.6); Osmolality,Calculated 287 (280-300); Potassium 3.9 mEq/L (3.5-5.1); Sodium 138 mEq/L (136-145); Thyroid Stimulating Hormone 0.172 mcIU/mL (0.340-5.600); Total Protein 6.9 g/dL (6.4-8.9); Troponin I < 0.03 ng/mL (< 0.04); eGFR For African Americans > 60 (> 60); eGFR For Non-African Americans > 60 (> 60)
[2019-04-21] MEDS ORDERED: Azithromycin 500 MG in D5% in Water 250 ML IVPB ONE (18:54)
[2019-04-21] MEDS ORDERED: cefTRIAXone 1,000 MG in Water for inj. (sterile) 10 ML IVP ONE (18:54)
[2019-04-21] MEDS: 0.9 % Sodium Chloride 1,000 ML IVC SCH (19:21)
[2019-04-21] MEDS ORDERED: Naloxone 0.4 MG/ML INJ IVP PRN (20:48)
[2019-04-21] MEDS ORDERED: Albuterol 2.5 MG/3 ML NEBULIZER IH PRN (20:54)
[2019-04-21 21:43] LABS: Adenovirus Not Detected (Not Detect); Bordetella Pertussis Not Detected (Not Detect); Chlamydophila pneumoniae Not Detected (Not Detect); Coronavirus 229E Not Detected (Not Detect); Coronavirus HKU1 Not Detected (Not Detect); Coronavirus NL63 Not Detected (Not Detect); Coronavirus OC43 Not Detected (Not Detect); Human Metapneumovirus Not Detected (Not Detect); Human Rhinovirus/Enterovirus Not Detected (Not Detect); Influenza A Subtype 2009 H1 Not Detected (Not Detect); Influenza B Not Detected (Not Detect); Mycoplasma pneumoniae Not Detected (Not Detect); Parainfluenza Virus 1 Not Detected (Not Detect); Parainfluenza Virus 2 Not Detected (Not Detect); Parainfluenza Virus 3 Not Detected (Not Detect); Parainfluenza Virus 4 Not Detected (Not Detect); Respiratory Syncytial Virus Not Detected (Not Detect)
[2019-04-21] MEDS: Ipratropium/Albuterol Neb 3 ML IH SCH (21:57)
[2019-04-21] MEDS: MethylPREDNISolone 40 MG/ML VIAL IVP SCH (23:56)
[2019-04-22 03:44] LABS: Hematocrit 39.3 % (37.5-50.1); Hemoglobin 11.9 g/dL (12.9-16.9); Mean Corpuscular HGB Conc 30.3 g/dL (31.6-35.5); Mean Corpuscular Hemoglobin 25.9 pg (28.0-33.3); Mean Corpuscular Volume 85.6 fL (83.0-100.0); Mean Platelet Volume 8.7 fL (9.4-12.4); Platelet Count 394 K/mcL (140-400); Red Blood Count 4.59 M/mcL (4.19-5.50); Red Cell Distribution Width 13.7 % (11.5-14.5); White Blood Count 10.1 K/mcL (4.3-11.1)
[2019-04-22] MEDS: Ipratropium/Albuterol Neb 3 ML IH SCH ×4 (03:46→22:02)
[2019-04-22 04:09] LABS: BUN/Creatinine Ratio 17 (6-26); Blood Urea Nitrogen 11 mg/dL (6-20); Calcium 9.2 mg/dL (8.6-10.3); Carbon Dioxide 30 mEq/L (23-29); Chloride 103 mEq/L (98-107); Glucose 113 mg/dL (70-105); Osmolality,Calculated 288 (280-300); Potassium 4.4 mEq/L (3.5-5.1); Sodium 139 mEq/L (136-145); Troponin I < 0.03 ng/mL (< 0.04); eGFR For African Americans > 60 (> 60); eGFR For Non-African Americans > 60 (> 60)
[2019-04-22] MEDS: MethylPREDNISolone 40 MG/ML VIAL IVP SCH ×3 (05:39→17:20)
[2019-04-22] MEDS: *HR* Heparin 5,000 UNIT/ML VIAL SQ SCH ×2 (05:39→17:20)
[2019-04-22] MEDS: amLODIPine 5 MG TABLET PO SCH (08:40)
[2019-04-22] MEDS: cefTRIAXone 1,000 MG in Water for inj. (sterile) 10 ML IVP SCH (08:40)
[2019-04-22] MEDS: *HR* HYDROcodone/Acet 5/325 mg TABLET PO PRN ×2 (14:40→21:38)
[2019-04-22 15:26] LABS: Triiodothyronine (T3) Free 3.49 pg/mL (2.50-3.90)
[2019-04-22] MEDS ORDERED: Azithromycin 500 MG in 0.9 % Sodium Chloride 250 ML IVPB SCH (19:00)
[2019-04-22] MEDS: Benzonatate 100 MG CAPSULE PO PRN (21:38)
[2019-04-23] MEDS: MethylPREDNISolone 40 MG/ML VIAL IVP SCH ×5 (01:01→23:17)
[2019-04-23] MEDS: Ipratropium/Albuterol Neb 3 ML IH SCH ×4 (03:20→22:36)
[2019-04-23] MEDS: *HR* Heparin 5,000 UNIT/ML VIAL SQ SCH ×2 (06:41→17:47)
[2019-04-23] MEDS: *HR* HYDROcodone/Acet 5/325 mg TABLET PO PRN ×2 (07:54→17:46)
[2019-04-23] MEDS: amLODIPine 5 MG TABLET PO SCH (07:56)
[2019-04-23] MEDS: Benzonatate 100 MG CAPSULE PO PRN ×2 (07:56→19:57)
[2019-04-23] MEDS: cefTRIAXone 1,000 MG in Water for inj. (sterile) 10 ML IVP SCH (07:58)
[2019-04-23] MEDS: Azithromycin 250 MG TABLET PO SCH (13:23)
[2019-04-23] MEDS: 0.9 % Sodium Chloride 1,000 ML IVC SCH ×4 (19:29→19:38)
[2019-04-24] MEDS: Ipratropium/Albuterol Neb 3 ML IH SCH ×3 (03:58→15:31)
[2019-04-24] MEDS: *HR* Heparin 5,000 UNIT/ML VIAL SQ SCH (06:03)
[2019-04-24] MEDS: MethylPREDNISolone 40 MG/ML VIAL IVP SCH ×2 (06:03→11:47)
[2019-04-24] MEDS: *HR* HYDROcodone/Acet 5/325 mg TABLET PO PRN (10:14)
[2019-04-24] MEDS: Azithromycin 250 MG TABLET PO SCH (10:14)
[2019-04-24] MEDS: amLODIPine 5 MG TABLET PO SCH (10:15)
[2019-04-24] MEDS: cefTRIAXone 1,000 MG in Water for inj. (sterile) 10 ML IVP SCH (10:15)
[2019-04-24 11:01] VITALS: BP 135/87
== END 2019-04-24 16:23 | disposition home or self-care (01) | DRG 139 ==
LOC: 2ANU 17:00 → EMEROOARM 17:00 → SUATTDRO 20:40 → 2ANU 21:05
PROVIDERS: ADMIT Family Medicine; ATTEND Internal Medicine

== ENCOUNTER 2019-05-26 14:49 | Inpatient (IN) ==
[2019-05-26] MEDS ORDERED: Isovue-370 500 ML BOTTLE IVP ONE (15:01)
[2019-05-26 15:23] LABS: Basophils % 0.7 %; Eosinophils # 0.1 K/mcL (0.0-0.6); Eosinophils % 2.2 %; Hematocrit 36.2 % (37.5-50.1); Hemoglobin 11.1 g/dL (12.9-16.9); Immature Granulocytes % 0.5 % (0-4); Lymphocytes # 0.8 K/mcL (0.6-4.6); Lymphocytes % 14.4 %; Mean Corpuscular HGB Conc 30.7 g/dL (31.6-35.5); Mean Corpuscular Hemoglobin 25.9 pg (28.0-33.3); Mean Corpuscular Volume 84.4 fL (83.0-100.0); Mean Platelet Volume 8.8 fL (9.4-12.4); Monocytes # 0.7 K/mcL (0.0-1.3); Monocytes % 11.5 %; Neutrophils # 4.1 K/mcL (1.6-8.9); Platelet Count 423 K/mcL (140-400); Red Blood Count 4.29 M/mcL (4.19-5.50); Red Cell Distribution Width 13.5 % (11.5-14.5); Segmented Neutrophils % 70.7 %; White Blood Count 5.8 K/mcL (4.3-11.1)
[2019-05-26 15:43] LABS: BUN/Creatinine Ratio 16 (6-26); Blood Urea Nitrogen 10 mg/dL (6-20); Carbon Dioxide 28 mEq/L (23-29); Chloride 102 mEq/L (98-107); Glucose 102 mg/dL (70-105); Osmolality,Calculated 285 (280-300); Potassium 3.6 mEq/L (3.5-5.1); Sodium 138 mEq/L (136-145); eGFR For African Americans > 60 (> 60); eGFR For Non-African Americans > 60 (> 60)
[2019-05-26 15:44] LABS: Troponin I < 0.03 ng/mL (< 0.04)
[2019-05-26] MEDS ORDERED: Naloxone 0.4 MG/ML INJ IVP PRN (18:11)
[2019-05-26] MEDS ORDERED: Ketorolac 15 MG/ML VIAL IVP ONE (22:25)
[2019-05-27] MEDS: Nitroglycerin 0.4 MG TAB.SUBL SL PRN ×2 (02:06→02:11)
[2019-05-27] MEDS: Nitroglycerin 0.4 MG TAB.SUBL SL SCH (02:07)
[2019-05-27 02:12] LABS: Basophils % 0.3 %; Eosinophils # 0.2 K/mcL (0.0-0.6); Eosinophils % 3.4 %; Hematocrit 34.7 % (37.5-50.1); Immature Granulocytes % 0.6 % (0-4); Lymphocytes # 1.4 K/mcL (0.6-4.6); Lymphocytes % 21.1 %; Mean Corpuscular HGB Conc 31.7 g/dL (31.6-35.5); Mean Corpuscular Hemoglobin 26.4 pg (28.0-33.3); Mean Corpuscular Volume 83.4 fL (83.0-100.0); Mean Platelet Volume 8.4 fL (9.4-12.4); Monocytes # 0.8 K/mcL (0.0-1.3); Monocytes % 12.5 %; Platelet Count 387 K/mcL (140-400); Red Blood Count 4.16 M/mcL (4.19-5.50); Red Cell Distribution Width 13.4 % (11.5-14.5); Segmented Neutrophils % 62.1 %; White Blood Count 6.4 K/mcL (4.3-11.1)
[2019-05-27 02:31] LABS: BUN/Creatinine Ratio 19 (6-26); Blood Urea Nitrogen 13 mg/dL (6-20); Calcium 8.8 mg/dL (8.6-10.3); Carbon Dioxide 26 mEq/L (23-29); Chloride 104 mEq/L (98-107); Glucose 115 mg/dL (70-105); Osmolality,Calculated 287 (280-300); Potassium 3.7 mEq/L (3.5-5.1); Sodium 138 mEq/L (136-145); eGFR For African Americans > 60 (> 60); eGFR For Non-African Americans > 60 (> 60)
[2019-05-27] MEDS ORDERED: Simethicone 80 MG TAB.CHEW PO ONE (03:25)
[2019-05-27] MEDS ORDERED: Ketorolac 15 MG/ML VIAL IVP ONE (03:44)
[2019-05-27] MEDS: amLODIPine 5 MG TABLET PO SCH (08:26)
[2019-05-27] MEDS: Budesonide/Formoterol 160/4.5 1 PUFF INH IH SCH ×2 (13:20→21:40)
[2019-05-27] MEDS: Ipratropium 1 PUFF INHALER IH SCH ×3 (13:21→21:39)
[2019-05-27] MEDS: Azithromycin 250 MG TABLET PO SCH (14:43)
[2019-05-27] MEDS: predniSONE 20 MG TABLET PO SCH (18:29)
[2019-05-27] MEDS: Benzonatate 100 MG CAPSULE PO PRN (22:06)
[2019-05-28 02:45] LABS: Basophils % 0.3 %; Eosinophils % 0.1 %; Hematocrit 38.1 % (37.5-50.1); Hemoglobin 12.1 g/dL (12.9-16.9); Immature Granulocytes % 0.6 % (0-4); Lymphocytes # 0.5 K/mcL (0.6-4.6); Lymphocytes % 5.2 %; Mean Corpuscular HGB Conc 31.8 g/dL (31.6-35.5); Mean Corpuscular Hemoglobin 26.4 pg (28.0-33.3); Mean Platelet Volume 8.7 fL (9.4-12.4); Monocytes # 0.2 K/mcL (0.0-1.3); Monocytes % 2.3 %; Neutrophils # 8.5 K/mcL (1.6-8.9); Platelet Count 455 K/mcL (140-400); Red Blood Count 4.59 M/mcL (4.19-5.50); Red Cell Distribution Width 13.2 % (11.5-14.5); Segmented Neutrophils % 91.5 %; White Blood Count 9.3 K/mcL (4.3-11.1)
[2019-05-28 03:03] LABS: BUN/Creatinine Ratio 22 (6-26); Blood Urea Nitrogen 15 mg/dL (6-20); Carbon Dioxide 25 mEq/L (23-29); Chloride 102 mEq/L (98-107); Glucose 144 mg/dL (70-105); Osmolality,Calculated 283 (280-300); Potassium 4.5 mEq/L (3.5-5.1); Sodium 135 mEq/L (136-145); eGFR For African Americans > 60 (> 60); eGFR For Non-African Americans > 60 (> 60)
[2019-05-28] MEDS: Ipratropium 1 PUFF INHALER IH SCH ×4 (04:41→20:26)
[2019-05-28] MEDS: Azithromycin 250 MG TABLET PO SCH (09:58)
[2019-05-28] MEDS: amLODIPine 5 MG TABLET PO SCH (09:58)
[2019-05-28] MEDS: predniSONE 20 MG TABLET PO SCH (09:58)
[2019-05-28] MEDS: Budesonide/Formoterol 160/4.5 1 PUFF INH IH SCH ×2 (10:10→20:25)
[2019-05-29 03:11] LABS: Hematocrit 34.9 % (37.5-50.1); Hemoglobin 11.3 g/dL (12.9-16.9); Mean Corpuscular HGB Conc 32.4 g/dL (31.6-35.5); Mean Corpuscular Hemoglobin 26.8 pg (28.0-33.3); Mean Corpuscular Volume 82.7 fL (83.0-100.0); Mean Platelet Volume 8.5 fL (9.4-12.4); Platelet Count 470 K/mcL (140-400); Red Blood Count 4.22 M/mcL (4.19-5.50); Red Cell Distribution Width 13.4 % (11.5-14.5); White Blood Count 12.1 K/mcL (4.3-11.1)
[2019-05-29 03:32] LABS: BUN/Creatinine Ratio 30 (6-26); Blood Urea Nitrogen 23 mg/dL (6-20); Calcium 8.8 mg/dL (8.6-10.3); Carbon Dioxide 27 mEq/L (23-29); Chloride 102 mEq/L (98-107); Glucose 120 mg/dL (70-105); Osmolality,Calculated 285 (280-300); Potassium 4.3 mEq/L (3.5-5.1); Sodium 135 mEq/L (136-145); eGFR For African Americans > 60 (> 60); eGFR For Non-African Americans > 60 (> 60)
[2019-05-29] MEDS: Ipratropium 1 PUFF INHALER IH SCH ×4 (04:02→21:14)
[2019-05-29] MEDS: amLODIPine 5 MG TABLET PO SCH (07:38)
[2019-05-29] MEDS: Azithromycin 250 MG TABLET PO SCH (07:38)
[2019-05-29] MEDS: predniSONE 20 MG TABLET PO SCH (07:39)
[2019-05-29] MEDS: Budesonide/Formoterol 160/4.5 1 PUFF INH IH SCH ×2 (08:12→21:13)
[2019-05-29] MEDS: Benzonatate 100 MG CAPSULE PO PRN (14:30)
[2019-05-30] MEDS: Ipratropium 1 PUFF INHALER IH SCH ×4 (04:50→21:08)
[2019-05-30 05:37] LABS: BUN/Creatinine Ratio 29 (6-26); Blood Urea Nitrogen 24 mg/dL (6-20); Calcium 8.5 mg/dL (8.6-10.3); Carbon Dioxide 22 mEq/L (23-29); Chloride 101 mEq/L (98-107); Glucose 100 mg/dL (70-105); Osmolality,Calculated 282 (280-300); Potassium 4.2 mEq/L (3.5-5.1); Sodium 134 mEq/L (136-145); eGFR For African Americans > 60 (> 60); eGFR For Non-African Americans > 60 (> 60)
[2019-05-30 07:21] LABS: Hematocrit 35.7 % (37.5-50.1); Hemoglobin 11.2 g/dL (12.9-16.9); Mean Corpuscular HGB Conc 31.4 g/dL (31.6-35.5); Mean Corpuscular Hemoglobin 26.5 pg (28.0-33.3); Mean Corpuscular Volume 84.4 fL (83.0-100.0); Mean Platelet Volume 8.7 fL (9.4-12.4); Platelet Count 463 K/mcL (140-400); Red Blood Count 4.23 M/mcL (4.19-5.50); Red Cell Distribution Width 13.4 % (11.5-14.5); White Blood Count 10.9 K/mcL (4.3-11.1)
[2019-05-30] MEDS: amLODIPine 5 MG TABLET PO SCH (09:10)
[2019-05-30] MEDS: predniSONE 20 MG TABLET PO SCH (09:10)
[2019-05-30] MEDS: Azithromycin 250 MG TABLET PO SCH (09:10)
[2019-05-30] MEDS: Budesonide/Formoterol 160/4.5 1 PUFF INH IH SCH ×2 (11:12→21:08)
[2019-05-31] MEDS: Ipratropium 1 PUFF INHALER IH SCH ×2 (03:44→09:54)
[2019-05-31] MEDS: amLODIPine 5 MG TABLET PO SCH (08:47)
[2019-05-31] MEDS: Azithromycin 250 MG TABLET PO SCH (08:47)
[2019-05-31] MEDS: predniSONE 20 MG TABLET PO SCH (08:47)
[2019-05-31] MEDS: Budesonide/Formoterol 160/4.5 1 PUFF INH IH SCH (09:54)
[2019-05-31 11:30] VITALS: BP 130/92
== END 2019-05-31 14:38 | disposition home or self-care (01) | DRG 145 ==
LOC: 2NENU 14:49 → EMEROOARM 14:49 → SUATTDRO 18:07 → 2NENU 21:05 → 2ANU 05-30 14:59
PROVIDERS: ADMIT Internal Medicine; ATTEND Student in an Organized Health Care Education/Training Program

== ENCOUNTER 2019-06-02 18:46 | Inpatient (IN) ==
[2019-06-02] MEDS ORDERED: methylPREDNISolone 125 MG/2 ML VIAL IVP ONE (19:07)
[2019-06-02 19:21] LABS: Basophils % 0.2 %; Eosinophils % 0.2 %; Hematocrit 40.7 % (37.5-50.1); Immature Granulocytes % 0.6 % (0-4); Lymphocytes # 0.7 K/mcL (0.6-4.6); Mean Corpuscular HGB Conc 31.4 g/dL (31.6-35.5); Mean Corpuscular Hemoglobin 26.7 pg (28.0-33.3); Mean Corpuscular Volume 84.8 fL (83.0-100.0); Mean Platelet Volume 8.9 fL (9.4-12.4); Monocytes # 0.6 K/mcL (0.0-1.3); Neutrophils # 12.5 K/mcL (1.6-8.9); Platelet Count 561 K/mcL (140-400); Red Cell Distribution Width 13.4 % (11.5-14.5); White Blood Count 13.9 K/mcL (4.3-11.1)
[2019-06-02 19:30] LABS: Hemoglobin 12.8 g/dL (12.9-16.9)
[2019-06-02 19:41] LABS: BUN/Creatinine Ratio 27 (6-26); Blood Urea Nitrogen 20 mg/dL (6-20); Calcium 9.3 mg/dL (8.6-10.3); Carbon Dioxide 28 mEq/L (23-29); Chloride 98 mEq/L (98-107); Glucose 188 mg/dL (70-105); Osmolality,Calculated 286 (280-300); Potassium 4.3 mEq/L (3.5-5.1); Sodium 134 mEq/L (136-145); Troponin I < 0.03 ng/mL (< 0.04); eGFR For African Americans > 60 (> 60); eGFR For Non-African Americans > 60 (> 60)
[2019-06-02] MEDS ORDERED: 0.9 % Sodium Chloride 500 ML IVC ONE (20:22)
[2019-06-03] MEDS ORDERED: Naloxone 0.4 MG/ML INJ IVP PRN (01:00)
[2019-06-03 01:46] LABS: Basophils % 0.1 %; Hematocrit 38.1 % (37.5-50.1); Hemoglobin 12.2 g/dL (12.9-16.9); Immature Granulocytes % 0.7 % (0-4); Lymphocytes # 0.3 K/mcL (0.6-4.6); Lymphocytes % 2.5 %; Mean Corpuscular Hemoglobin 26.8 pg (28.0-33.3); Mean Corpuscular Volume 83.7 fL (83.0-100.0); Mean Platelet Volume 8.7 fL (9.4-12.4); Monocytes # 0.1 K/mcL (0.0-1.3); Neutrophils # 12.8 K/mcL (1.6-8.9); Platelet Count 472 K/mcL (140-400); Red Blood Count 4.55 M/mcL (4.19-5.50); Red Cell Distribution Width 13.5 % (11.5-14.5); Segmented Neutrophils % 95.7 %; White Blood Count 13.4 K/mcL (4.3-11.1)
[2019-06-03] MEDS ORDERED: Morphine Sulfate 2 MG/ML SYRINGE IVP ONE (01:51)
[2019-06-03] MEDS ORDERED: Melatonin 3 MG TABLET PO PRN (01:51)
[2019-06-03 01:55] LABS: Prothrombin Time 11.5 Seconds (9.4-12.1)
[2019-06-03 02:08] LABS: % Iron Saturation 15 % (20-55); Alanine Aminotransferase 12 Units/L (7-52); Albumin 4.1 g/dL (3.5-5.7); Albumin/Globulin Ratio 1.6 (1.1-2.2); Alkaline Phosphatase 73 Units/L (34-104); Aspartate Amino Transferase 11 Units/L (13-39); BUN/Creatinine Ratio 33 (6-26); Bilirubin,Total 0.4 mg/dL (0.3-1.0); Blood Urea Nitrogen 22 mg/dL (6-20); Calcium 9.2 mg/dL (8.6-10.3); Carbon Dioxide 24 mEq/L (23-29); Chloride 101 mEq/L (98-107); Globulin 2.5 g/dL (2.4-3.5); Glucose 144 mg/dL (70-105); Iron 55 mcg/dL (65-175); Magnesium 2.2 mg/dL (1.6-2.6); Osmolality,Calculated 284 (280-300); Phosphorous 2.6 mg/dL (2.7-4.5); Potassium 4.4 mEq/L (3.5-5.1); Sodium 134 mEq/L (136-145); Total Protein 6.6 g/dL (6.4-8.9); Transferrin 264 mg/dL (203-362); Troponin I < 0.03 ng/mL (< 0.04); eGFR For African Americans > 60 (> 60); eGFR For Non-African Americans > 60 (> 60)
[2019-06-03 02:26] LABS: Ferritin 107 ng/mL (20-250)
[2019-06-03] MEDS: Ipratropium/Albuterol Neb 3 ML IH SCH ×5 (03:06→22:45)
[2019-06-03] MEDS ORDERED: cefTRIAXone 1,000 MG in Water for inj. (sterile) 10 ML IVP SCH (04:41)
[2019-06-03] MEDS: predniSONE 20 MG TABLET PO SCH (07:47)
[2019-06-03 07:55] LABS: Bilirubin,Urine Negative (Negative); Blood,Urine Negative (Negative); Clarity,Urine Clear (Clear); Color,Urine Yellow (Yellow); Glucose,Urine (UA) Normal (Normal); Ketones,Urine Negative (Negative); Leukocyte Esterase,Urine Negative (Negative); Nitrite,Urine Negative (Negative); PH,Urine 6.5 pH Units (5.0-8.0); Protein,Urine Trace mg/dL (Neg-Trace); Specific Gravity,Urine > 1.030 (1.010-1.025); Urobilinogen,Urine Normal (Normal)
[2019-06-03] MEDS ORDERED: Albuterol 2.5 MG/3 ML NEBULIZER IH PRN (08:37)
[2019-06-03 08:43] LABS: Estimated Average Glucose 120 mg/dl
[2019-06-03] MEDS: Morphine Sulfate Oral CONC 10 MG/0.5 ML ORAL.SYG SL PRN ×3 (10:34→16:30)
[2019-06-03] MEDS ORDERED: Albuterol 2.5 MG/3 ML NEBULIZER IH SCH (12:00)
[2019-06-03] MEDS: *HR* LORazepam 1 MG TABLET PO PRN (13:20)
[2019-06-03] MEDS ORDERED: Benzonatate 100 MG CAPSULE PO PRN (13:25)
[2019-06-03] MEDS: DilTIAZem CD (24hr) 120 MG CAP.ER.24H PO SCH (13:55)
[2019-06-03] MEDS: *HR* Heparin 5,000 UNIT/ML VIAL SQ SCH (16:24)
[2019-06-03] MEDS: Piperacillin/Tazobactam 3.375 GM in 0.9 % Sodium Chloride Mini Bag 100 ML IVPB SCH ×2 (16:24→23:14)
[2019-06-04 01:01] LABS: Hematocrit 35.3 % (37.5-50.1); Hemoglobin 10.7 g/dL (12.9-16.9); Mean Corpuscular HGB Conc 30.3 g/dL (31.6-35.5); Mean Corpuscular Volume 85.7 fL (83.0-100.0); Mean Platelet Volume 8.9 fL (9.4-12.4); Platelet Count 503 K/mcL (140-400); Red Blood Count 4.12 M/mcL (4.19-5.50); Red Cell Distribution Width 13.6 % (11.5-14.5)
[2019-06-04] MEDS: Morphine Sulfate Oral CONC 10 MG/0.5 ML ORAL.SYG SL PRN ×4 (01:15→21:46)
[2019-06-04 01:22] LABS: BUN/Creatinine Ratio 28 (6-26); Blood Urea Nitrogen 28 mg/dL (6-20); Calcium 8.8 mg/dL (8.6-10.3); Carbon Dioxide 27 mEq/L (23-29); Chloride 102 mEq/L (98-107); Glucose 139 mg/dL (70-105); Osmolality,Calculated 292 (280-300); Sodium 137 mEq/L (136-145); eGFR For African Americans > 60 (> 60); eGFR For Non-African Americans > 60 (> 60)
[2019-06-04] MEDS: Ipratropium/Albuterol Neb 3 ML IH SCH ×4 (03:58→22:08)
[2019-06-04] MEDS: *HR* Heparin 5,000 UNIT/ML VIAL SQ SCH ×2 (05:21→17:47)
[2019-06-04] MEDS ORDERED: NON-FORMULARY MEDICATION 1 EACH EACH (Roflumilast [Daliresp] 500 MCG) PO SCH (09:00)
[2019-06-04] MEDS: amLODIPine 5 MG TABLET PO SCH (09:14)
[2019-06-04] MEDS: predniSONE 20 MG TABLET PO SCH (09:14)
[2019-06-04] MEDS: DilTIAZem CD (24hr) 120 MG CAP.ER.24H PO SCH (09:15)
[2019-06-04] MEDS: Piperacillin/Tazobactam 3.375 GM in 0.9 % Sodium Chloride Mini Bag 100 ML IVPB SCH ×3 (09:15→23:31)
[2019-06-04] MEDS: Tiotropium 18 MCG inhalation IH SCH (09:44)
[2019-06-04] MEDS: Budesonide/Formoterol 160/4.5 1 PUFF INH IH SCH ×2 (10:29→22:08)
[2019-06-04] MEDS: *HR* LORazepam 1 MG TABLET PO PRN (20:06)
[2019-06-05] MEDS: Ipratropium/Albuterol Neb 3 ML IH SCH ×4 (04:10→22:04)
[2019-06-05] MEDS: Morphine Sulfate Oral CONC 10 MG/0.5 ML ORAL.SYG SL PRN ×5 (06:13→20:34)
[2019-06-05] MEDS: *HR* Heparin 5,000 UNIT/ML VIAL SQ SCH ×2 (06:14→17:30)
[2019-06-05 07:14] LABS: ABG Base Excess 5 mEq/L (-2 to 3); ABG HCO3 31 mEq/L (21-27); ABG Oxygen Saturation 97 % (95-98); ABG PCO2 53 mmHg (35-45); ABG PH 7.38 pH Units (7.32-7.45); ABG PO2 91 mmHg (85-104); ABG TCO2 33 mEq/L (20-26)
[2019-06-05] MEDS: Piperacillin/Tazobactam 3.375 GM in 0.9 % Sodium Chloride Mini Bag 100 ML IVPB SCH ×2 (08:55→15:49)
[2019-06-05] MEDS: DilTIAZem CD (24hr) 120 MG CAP.ER.24H PO SCH (08:56)
[2019-06-05] MEDS: predniSONE 20 MG TABLET PO SCH (08:56)
[2019-06-05] MEDS: amLODIPine 5 MG TABLET PO SCH (08:56)
[2019-06-05] MEDS: Budesonide/Formoterol 160/4.5 1 PUFF INH IH SCH ×2 (10:31→22:04)
[2019-06-05] MEDS: Tiotropium 18 MCG inhalation IH SCH (10:32)
[2019-06-06] MEDS: Piperacillin/Tazobactam 3.375 GM in 0.9 % Sodium Chloride Mini Bag 100 ML IVPB SCH ×2 (00:14→08:15)
[2019-06-06] MEDS: Morphine Sulfate Oral CONC 10 MG/0.5 ML ORAL.SYG SL PRN ×4 (00:16→11:43)
[2019-06-06] MEDS: Ipratropium/Albuterol Neb 3 ML IH SCH ×2 (04:04→10:04)
[2019-06-06] MEDS: *HR* Heparin 5,000 UNIT/ML VIAL SQ SCH (05:36)
[2019-06-06] MEDS: predniSONE 20 MG TABLET PO SCH (08:15)
[2019-06-06] MEDS: amLODIPine 5 MG TABLET PO SCH (08:15)
[2019-06-06] MEDS: DilTIAZem CD (24hr) 120 MG CAP.ER.24H PO SCH (08:15)
[2019-06-06] MEDS: Tiotropium 18 MCG inhalation IH SCH (08:40)
[2019-06-06] MEDS: Budesonide/Formoterol 160/4.5 1 PUFF INH IH SCH (10:04)
[2019-06-06 10:32] VITALS: BP 123/75
== END 2019-06-06 13:30 | disposition hospice, home (50) | DRG 720 ==
LOC: EMEROOARM 18:46 → 2ANU 18:46 → SUATTDRO 22:28 → 2ANU 23:15
PROVIDERS: ADMIT Internal Medicine; ATTEND Internal Medicine